=== PATIENT | male | born 1950 | race Caucasian/White ===

== ENCOUNTER 2017-05-05 14:27 | Inpatient (IN) | payer MEDICARE, MEDICAID ==
[~2017-05-05] VITALS: Ht 175.3 cm; Wt 89.5 kg
[~2017-05-05 14:27] MED LIST: LIDOCAINE HCL 1% PF 5 ML AMPULE OTHER ONE; PROPOFOL 200 MG/20 ML AMP IV ONE
[2017-05-05] MEDS ORDERED: DIPHTH/TETANUS/ACEL PERTUSSIS (BOOSTER) 0.5 ML VIAL/PFS IM ONE (14:31)
[2017-05-05] MEDS ORDERED: ceFAZolin 2 GM PREMIX 50 ML ONE (14:31)
[2017-05-05] MEDS ORDERED: MORPHINE SULFATE 8 MG/ML INJ ONE (14:36)
[2017-05-05 14:38] VITALS: O2SAT 98
[2017-05-05] MEDS ORDERED: GENTAMICIN 80 MG PREMIX 100 ML ONE (14:39)
--- NOTE | 2017-05-05 14:52 | RADRPT ---
EXAM DATE/TIME: 05/05/2017 14:30 [facility] COMPARISON: No previous studies available for comparison. INDICATIONS : Trauma alert. MEDICAL HISTORY : Unobtainable. SURGICAL HISTORY : Unobtainable. ENCOUNTER: Initial ACUITY: 1 day PAIN SCORE: Non-responsive. LOCATION: pelvis FINDINGS: Single AP view of the pelvis performed on a trauma backboard demonstrates a minimal displaced fractur es of the right superior and inferior pubic rami. Pubic symphysis and sacroiliac joints appear intact . There is mild osteoarthritis of the hip joints bilaterally. No soft tissue abnormality is seen. CONCLUSION: Minimally displaced fractures of the right superior and inferior pubic rami. Wayne Mcdaniels MD on May 05, 2017 at 14:50 Board Certified Radiologist. This report was verified electronically.
[2017-05-05] MEDS ORDERED: IOHEXOL 350 MG/ML 10 ML VIAL (for RAD DIAG) IVCONTRAST ONE (14:54)
--- NOTE | 2017-05-05 14:55 | RADRPT ---
EXAM DATE/TIME: 05/05/2017 14:30 [facility] COMPARISON: No previous studies available for comparison. INDICATIONS : Trauma alert. MEDICAL HISTORY : Unobtainable. SURGICAL HISTORY : Unobtainable. ENCOUNTER: Initial ACUITY: 1 day PAIN SCORE: Non-responsive. LOCATION: Bilateral chest FINDINGS: Frontal chest is performed with patient on a backboard. The lungs are grossly aerated without definit e hemothorax or pneumothorax. Cardiomediastinal contours are satisfactory for technique and projectio n. Visualized thoracic skeleton is intact. CONCLUSION: Satisfactory trauma chest appearance. Wayne Chowdhury MD on May 05, 2017 at 14:52 Board Certified Radiologist. This report was verified electronically.
--- NOTE | 2017-05-05 15:02 | RADRPT ---
EXAM DATE/TIME: 05/05/2017 14:37 [facility] COMPARISON: No previous studies available for comparison. INDICATIONS : Trauma alert, fall from tree. RADIATION DOSE: 56.35 CTDIvol (mGy) MEDICAL HISTORY : Non-responsive. SURGICAL HISTORY : Non-responsive. ENCOUNTER: Initial ACUITY: 1 day PAIN SCALE: Non-responsive LOCATION: cranial TECHNIQUE: Multiple contiguous axial images were obtained of the head. Using automated exposure control and adj ustment of the mA and/or kV according to patient size, radiation dose was kept as low as reasonably a chievable to obtain optimal diagnostic quality images. DICOM format image data is available electro nically for review and comparison. FINDINGS: CEREBRUM: The ventricles are normal for age. No evidence of midline shift, mass lesion, hemorrhage or acute in farction. No extra-axial fluid collections are seen. POSTERIOR FOSSA: The cerebellum and brainstem are intact. The 4th ventricle is midline. The cerebellopontine angle i s unremarkable. EXTRACRANIAL: The visualized portion of the orbits is intact. SKULL: The calvaria is intact. No evidence of skull fracture. CONCLUSION: No acute intracranial injury Wayne Chowdhury MD on May 05, 2017 at 14:55 Board Certified Radiologist. This report was verified electronically.
[2017-05-05 15:03] LABS: I-STAT POTASSIUM 4.3 MMOL/L (3.5-4.9)
--- NOTE | 2017-05-05 15:03 | RADRPT ---
EXAM DATE/TIME: 05/05/2017 14:30 [facility] COMPARISON: No previous studies available for comparison. INDICATIONS : Trauma alert. MEDICAL HISTORY : Unobtainable. SURGICAL HISTORY : Unobtainable. ENCOUNTER: Initial ACUITY: 1 day PAIN SCORE: Non-responsive. LOCATION: Right wrist FINDINGS: There is a moderately displaced fracture of the distal right radius with dorsal angulation and modera te dorsal displacement of the minor distal radial fracture fragment. The carpus is translocated dorsa lly with the distal radial articular surface. The distal ulna appears grossly intact. CONCLUSION: Moderately displaced Colles' configuration distal right radial fracture. Wayne Chowdhury MD on May 05, 2017 at 15:00 Board Certified Radiologist. This report was verified electronically.
[2017-05-05 15:05] LABS: AUTOMATED NEUTROPHIL # 7.1 TH/MM3 (1.8-7.7); BASOPHIL # 0.1 TH/MM3 (0-0.2); BASOPHIL % 0.6 % (0.0-2.0); EOSINOPHIL # 0.2 TH/MM3 (0-0.4); EOSINOPHIL % 1.7 % (0.0-4.0); HEMATOCRIT 45.6 % (39.0-51.0); HEMO FLAGS DIFF FINAL; LYMPH % 26.8 % (9.0-44.0); MEAN CELL VOLUME 93.8 FL (80.0-100.0); MEAN CORPUSCULAR HEMOGLOBIN 31.8 PG (27.0-34.0); MEAN CORPUSCULAR HGB CONC 33.9 % (32.0-36.0); MONO % 7.1 % (0.0-8.0); NEUT % 63.8 % (16.0-70.0); PLATELET COUNT 250 TH/MM3 (150-450); RED BLOOD COUNT 4.86 MIL/MM3 (4.50-5.90); RED CELL DISTRIBUTION WIDTH 12.6 % (11.6-17.2); WHITE BLOOD COUNT 11.1 TH/MM3 (4.0-11.0)
--- NOTE | 2017-05-05 15:08 | PD ---
HPI . Fall Chief Complaint: Trauma alert Time Seen by Provider: 14:42 Travel History International Travel<30 days: No Contact w/Intl Traveler<30days: No History of Present Illness HPI This patient presented as a trauma alert. He fell approximately 20 feet from an extension ladder. He was attempting to trim trees. He states that he just lost his balance and fell. He landed on his right side on concrete pavers. He denies loss of consciousness. He states that he feels like he had the wind knocked out of him. He comes in complaining with right wrist and right hip pain. He denies chest pain. He states that he is not currently short of breath. He has had no vomiting. He rates his pain in his wrist and hip at 6/ 10. Pain is exacerbated by movement. It is relieved by being still. He was hypotensive in the field. He was treated by EMS in the field with IV fluids and IV morphine. [facility] Past Medical History Coronary Artery Disease: Yes Diabetes: Yes Hypertension: Yes Myocardial Infarction: Yes Allergies-Medications (Allergen,Severity, Reaction): Coded Allergies: nitroglycerin (Verified Adverse Reaction, Unknown, Hypotension, 05/05/17) Reported Meds & Prescriptions Reported Meds & Active Scripts Active Reported Metformin (Metformin HCl) 1,000 Mg Tab 1,000 Mg PO BIDPC Metoprolol Tartrate 25 Mg Tab 25 Mg PO BID Aspirin 81 Mg Chew 81 Mg PO DAILY Plavix (Clopidogrel Bisulfate) 75 Mg Tab 75 Mg PO DAILY Review of Systems Except as stated in HPI: all other systems reviewed are Neg Cardiovascular: No: Chest Pain or Discomfort Respiratory: No: Shortness of Breath Gastrointestinal: No: Nausea, Vomiting, Diarrhea, Abdominal Pain Musculoskeletal: Positive: Arthralgias, Limited ROM Physical Exam Narrative GENERAL: Patient is awake and alert and has been loose and the entire time that he was in the trauma bay. SKIN: Pale and diaphoretic. HEAD: Normocephalic. Atraumatic. EYES: Pupils equal and round. No scleral icterus. No injection or drainage. ENT: No nasal bleeding or discharge. Mucous membranes pink and moist. NECK: Immobilized. CARDIOVASCULAR: Regular rate and rhythm. Heart sounds are normal. RESPIRATORY: No accessory muscle use. Clear to auscultation. Breath sounds equal bilaterally. GASTROINTESTINAL: Abdomen soft. Nontender. Bowel sounds present. Nondistended. MUSCULOSKELETAL: Obvious deformity of the right wrist with an associated puncture wound over the ulna. Tenderness in the right hip area. No shortening or malrotation. Pain with movement. Distally neurovascularly intact. He has a dislocation of the right fourth DIP joint. NEUROLOGICAL: Awake and alert. No obvious cranial nerve deficits. Motor grossly within normal limits. Normal speech. PSYCHIATRIC: Appropriate mood and affect; insight and judgment normal. Data Data Last Documented VS Vital Signs Date Time Temp Pulse Resp B/P (MAP) Pulse Ox O2 Delivery O2 Flow Rate FiO2 05/05/17 15:10 17 100 Nasal Cannula 2.00 Orders Orders Cefazolin 2 Gm Premix (Ancef 2 Gm Premix (05/05/17 14:31) Jtfj-Xym-Ezhvhx (Booster) Inj (Boostrix (05/05/17 14:31) Morphine Inj (Morphine Inj) (05/05/17 14:36) Gentamicin 80 Mg Premix (Gentamicin 80 M (05/05/17 14:39) I-Stat Profile (05/05/17 14:30) I-Stat Creatinine (05/05/17 14:30) Complete Blood Count With Diff (05/05/17 14:30) Prothrombin Time / Inr (Pt) (05/05/17 14:30) Act Partial Throm Time (Ptt) (05/05/17 14:30) Type And Screen (05/05/17 14:30) Red Blood Cells (Rbc) (05/05/17 14:30) Chest, Single Ap (05/05/17 14:30) Pelvis, Ap Only (Routine) (05/05/17 14:30) Ct Brain W/O Iv Contrast(Rout) (05/05/17 14:30) Ct Cerv Spine W/O Contrast (05/05/17 14:30) Ct Abd/Pel W Iv Contrast(Rout) (05/05/17 14:30) Ct Thorax/ Chest W Iv Contrast (05/05/17 14:30) Ct Thor Spine W/O Contrast (05/05/17 14:30) Ct Lumb Spine W/O Contrast (05/05/17 14:30) Iv Access Insert/Monitor (05/05/17 14:30) Ecg Monitoring (05/05/17 14:30) Oximetry (05/05/17 14:30) Oxygen Administration (05/05/17 14:30) Wrist, Limited (Ap&Lat) (05/05/17 ) Iohexol 350 Inj (Omnipaque 350 Inj) (05/05/17 14:54) Consult Orthopedic (05/05/17 ) Trauma Office Use Only (05/05/17 ) (Hub Use Only)Inp Phy Cons/Ref (05/05/17 ) Gentamicin Inj (Gentamicin Inj) (05/05/17 16:10) Labs Laboratory Tests Test 05/05/17 14:30 White Blood Count 11.1 TH/MM3 Red Blood Count 4.86 MIL/MM3 Hemoglobin 15.5 GM/DL Bedside Hemoglobin 15.6 G/DL Hematocrit 45.6 % Bedside Hematocrit 46.0 % Mean Corpuscular Volume 93.8 FL Mean Corpuscular Hemoglobin 31.8 PG Mean Corpuscular Hemoglobin Concent 33.9 % Red Cell Distribution Width 12.6 % Platelet Count 250 TH/MM3 Mean Platelet Volume 7.7 FL Neutrophils (%) (Auto) 63.8 % Lymphocytes (%) (Auto) 26.8 % Monocytes (%) (Auto) 7.1 % Eosinophils (%) (Auto) 1.7 % Basophils (%) (Auto) 0.6 % Neutrophils # (Auto) 7.1 TH/MM3 Lymphocytes # (Auto) 3.0 TH/MM3 Monocytes # (Auto) 0.8 TH/MM3 Eosinophils # (Auto) 0.2 TH/MM3 Basophils # (Auto) 0.1 TH/MM3 CBC Comment DIFF FINAL Differential Comment Prothrombin Time 11.3 SEC Prothromb Time International Ratio 1.0 RATIO Activated Partial Thromboplast Time 21.7 SEC Bedside Sodium 141 MMOL/L Bedside Potassium 4.3 MMOL/L Bedside Chloride 106 MMOL/L Bedside Blood Urea Nitrogen 23 MG/DL Bedside Creatinine 0.9 MG/DL Bedside Glucose 209 MG/DL [facility] Medical Screen Exam Complete: Yes Emergency Medical Condition: Yes Interpretation(s) EKG shows a sinus rhythm with no ST segment elevation or depression. Differential Diagnosis Differential diagnosis includes but is not limited to abrasion, contusion, laceration, closed head injury, blunt chest trauma, blunt abdominal trauma, long bone injury Narrative Course Patient presents as a trauma alert. He had a 20 foot fall onto his right side and has obvious trauma to the right wrist and probable trauma to the right hip. He was reportedly hypotensive in the field. Her pressure responded to a fluid bolus. EMS treated him with morphine 4 mg IV for pain. Appropriate monitors were placed. IV access was obtained. Chest and pelvic x- ray were done. A right wrist x-ray was also done. The patient was then removed from the backboard. A sugar tong splint was placed on the right forearm. He was then taken to CT for further evaluation. The patient was treated with Ancef and tetanus on arrival. He was given an additional 4 mg morphine for pain. Last Impressions Pelvis X-Ray [id number]/05/[id number] Signed Impressions: Service Date/Time: Friday, May 05, 2017 14:30 - CONCLUSION: Minimally displaced fractures of the right superior and inferior pubic rami. Wayne Mcdaniels MD Head CT 05/05/171429 Signed Impressions: Service Date/Time: Friday, May 05, 2017 14:37 - CONCLUSION: No acute intracranial injury Wayne Chowdhury MD Chest X-Ray 05/05/171429 Signed Impressions: Service Date/Time: Friday, May 05, 2017 14:30 - CONCLUSION: Satisfactory trauma chest appearance. Wayne Chowdhury MD Chest CT 05/05/171429 Signed Impressions: Service Date/Time: Friday, May 05, 2017 14:43 - CONCLUSION: No acute traumatic injury in the chest Wayne Chowdhury MD Cervical Spine CT 05/05/171429 Signed Impressions: Service Date/Time: Friday, May 05, 2017 14:42 - CONCLUSION: 1. No acute fracture or subluxation. 2. Multilevel degenerative spondylosis most prominently at C5-7. Tao Blanchard MD Abdomen/Pelvis CT 05/05/171429 Signed Impressions: Service Date/Time: Friday, May 05, 2017 14:43 - CONCLUSION: Right pelvic fractures. No evidence of acute intra-abdominal or pelvic soft tissue injury Wayne Chowdhury MD Wrist X-Ray 05/05/17 0000 Signed Impressions: Service Date/Time: Friday, May 05, 2017 14:30 - CONCLUSION: Moderately displaced Colles' configuration distal right radial fracture. Wayne Chowdhury MD CBC Diagram 05/05/17 14:30 Critical Care Narrative Aggregate critical care time was 30 minutes. Time to perform other separately billable procedures was not included in the critical care time. My time did not include minutes spent treating any other patients simultaneously or on activities that did not directly contribute to the patient's treatment. The services I provided to this patient were to treat and/or prevent clinically significant deterioration due to trauma patient with hypotension I provided critical care services requiring my management, as noted below: Chart data review, documentation time, medication orders and management, vital sign assessments/reviewing monitor data, ordering and reviewing lab tests, ordering and interpreting/reviewing x-rays and diagnostic studies, care of the patient and discussion of the patient with the admitting physicians Procedures Procedure Narrative Splint was applied by the tech with my assistance and direct supervision Good movement and capillary refill distal to the injury following splinting. Patient reports that the splint feels comfortable. The dislocated right fourth DIP joint was easily reduced manually. He tolerated this well without complication. Trauma Alert - Level One Trauma Alert Level One: Full trauma team activate Time Surgeon Summoned: 13:[address] Ty has been present in the trauma bay during the entire resuscitation. Dr. Hauser will try to take him to surgery this afternoon. Diagnosis Diagnosis: Primary Impression: Trauma Additional Impressions: Open fracture of right distal radius and ulna Qualified Codes: S52.501B - Unspecified fracture of the lower end of right radius, initial encounter for open fracture type I or II; S52.601B - Unspecified fracture of lower end of right ulna, initial encounter for open fracture type I or II Pelvic fracture Qualified Codes: S32.501A - Unspecified fracture of right pubis, initial encounter for closed fracture Admitting Physician Requests: Admit Condition: Stable Aleta Narvaez MD May 05, 2017 15:08
--- NOTE | 2017-05-05 15:08 | RADRPT ---
EXAM DATE/TIME: 05/05/2017 14:43 [facility] COMPARISON: No previous studies available for comparison. INDICATIONS : Trauma alert, fall from tree. IV CONTRAST: 82 cc Omnipaque 350 (iohexol) IV ; Cumulative dose for multiple exams. RADIATION DOSE: 9.01 CTDIvol (mGy) ; Combined studies - Thorax/Abdomen/Pelvis MEDICAL HISTORY : Non-responsive. SURGICAL HISTORY : Non-responsive. ENCOUNTER: Initial ACUITY: 1 day PAIN SCALE: Non-responsive LOCATION: chest TECHNIQUE: Volumetric scanning of the chest was performed. Using automated exposure control and adjustment of t he mA and/or kV according to patient size, radiation dose was kept as low as reasonably achievable to obtain optimal diagnostic quality images. DICOM format image data is available electronically for review and comparison. Follow-up recommendations for detected pulmonary nodules are based at a minimum on nodule size and pa tient risk factors according to Fleischner Society Guidelines. FINDINGS: LUNGS: There is no consolidation or pneumothorax. No concerning pulmonary nodule is visualized. PLEURA: There is no pleural thickening or pleural effusion. MEDIASTINUM: The heart and great vessels demonstrate no acute abnormality. There is no mediastinal or hilar lymph adenopathy. AXILLAE: Within normal limits. No lymphadenopathy. SKELETAL: Within normal limits for patient age. MISCELLANEOUS: The visualized upper abdominal organs demonstrate no acute abnormality. CONCLUSION: No acute traumatic injury in the chest Wayne Chowdhury MD on May 05, 2017 at 15:02 Board Certified Radiologist. This report was verified electronically.
[2017-05-05 15:09] LABS: APTT (PATIENT) 21.7 SEC (24.3-30.1); PROTHROMBIN TIME - PATIENT 11.3 SEC (9.8-11.6)
[2017-05-05 15:10] VITALS: RESP 17; O2SAT 100
--- NOTE | 2017-05-05 15:13 | RADRPT ---
EXAM DATE/TIME: 05/05/2017 14:43 [facility] COMPARISON: No previous studies available for comparison. INDICATIONS : Trauma alert, fall from tree. IV CONTRAST: 82 cc Omnipaque 350 (iohexol) IV ; Cumulative dose for multiple exams. ORAL CONTRAST: No oral contrast ingested. RADIATION DOSE: 9.01 CTDIvol (mGy) ; Combined studies - Thorax/Abdomen/Pelvis MEDICAL HISTORY : Non-responsive. SURGICAL HISTORY : Non-responsive. ENCOUNTER: Initial ACUITY: 1 day PAIN SCALE: Non-responsive LOCATION: abdomen TECHNIQUE: Volumetric scanning of the abdomen and pelvis was performed. Using automated exposure control and ad justment of the mA and/or kV according to patient size, radiation dose was kept as low as reasonably achievable to obtain optimal diagnostic quality images. DICOM format image data is available electro nically for review and comparison. FINDINGS: LOWER LUNGS: The visualized lower lungs are clear. LIVER: Homogeneous density without lesion. There is no dilation of the biliary tree. No calcified gallston es. SPLEEN: Normal size without lesion. PANCREAS: Within normal limits. KIDNEYS: Normal in size and shape. There is no mass, stone or hydronephrosis. ADRENAL GLANDS: Within normal limits. VASCULAR: There is no aortic aneurysm. BOWEL/MESENTERY: The stomach, small bowel, and colon demonstrate no acute abnormality. There is no free intraperitone al air or fluid. ABDOMINAL WALL: Within normal limits. RETROPERITONEUM: Mild extraperitoneal pelvic hematoma on the right associated with acetabular fractures. BLADDER: No wall thickening or mass. REPRODUCTIVE: Within normal limits. INGUINAL: There is no lymphadenopathy or hernia. MUSCULOSKELETAL: The right acetabulum is shattered with fracture lines extending to the superior and medial acetabulum . There is a mildly displaced vertically oriented fracture through the right sacral ala. There is a m ildly displaced fracture of the inferior pubic ramus. No evidence of left-sided hip or pelvic fractur e. CONCLUSION: Right pelvic fractures. No evidence of acute intra-abdominal or pelvic soft tissue injury Wayne Chowdhury MD on May 05, 2017 at 15:06 Board Certified Radiologist. This report was verified electronically.
[2017-05-05] MEDS ORDERED: METF1000 PO (15:18)
[2017-05-05] MEDS ORDERED: ASPI-516 PO (15:18)
[2017-05-05] MEDS ORDERED: PLAV75TA29 PO (15:18)
[2017-05-05] MEDS ORDERED: METO25TA3 PO (15:18)
--- NOTE | 2017-05-05 15:19 | RADRPT ---
EXAM DATE/TIME: 05/05/2017 14:42 [facility] COMPARISON: No previous studies available for comparison. INDICATIONS : Trauma alert, fall from tree. RADIATION DOSE: CTDIvol (mGy) MEDICAL HISTORY : Non-responsive. SURGICAL HISTORY : Non-responsive. ENCOUNTER: Initial ACUITY: 1 day PAIN SCALE: Non-responsive LOCATION: neck TECHNIQUE: Volumetric scanning of the cervical spine was performed. Multiplanar reconstructions in the sagittal, coronal and oblique axial planes were performed. Using automated exposure control and adjustment o f the mA and/or kV according to patient size, radiation dose was kept as low as reasonably achievable to obtain optimal diagnostic quality images. DICOM format image data is available electronically f or review and comparison. FINDINGS: Vertebral body heights are maintained. Osseous structures are intact without evidence for acute bony fracture. Dens is intact. There is increased anterior disc space at C2-3 and C4-5. Sagittal alignment is maintained. There is a normal C1-2 relationship. Facets are normally aligned. Multilevel degenera tive spondylosis most prominently at C5-7 with disc space narrowing and osteophyte formation. Bony ce ntral canal is patent. There is moderate bilateral bony neural foraminal stenosis at C6-7. Variable m ultilevel facet arthropathy. There is no significant prevertebral soft tissue hematoma. Scattered sub centimeter cervical nodes bilaterally. The thyroid appears unremarkable. Visualized lung apices are c lear without pneumothorax. CONCLUSION: 1. No acute fracture or subluxation. 2. Multilevel degenerative spondylosis most prominently at C5-7. Tao Blanchard MD on May 05, 2017 at 15:10 Board Certified Radiologist. This report was verified electronically.
[2017-05-05] MEDS ORDERED: GENTAMICIN SULFATE 80 MG/2 ML VIAL ONE (16:10)
[2017-05-05] MEDS ORDERED: ACETAMINOPHEN 1000 MG/100 ML 100 ML IV ONE (16:29)
[2017-05-05] MEDS ORDERED: SODIUM CHLORIDE 0.9% FLUSH 10 ML FLUSH IV FLUSH PRN (16:30)
[2017-05-05] MEDS ORDERED: MAGNESIUM HYDROXIDE SUSP 30 ML CUP PO PRN (16:30)
[2017-05-05] MEDS ORDERED: ENALAPRILAT 1.25 MG/ML VIAL IV PUSH PRN (16:30)
[2017-05-05] MEDS ORDERED: ONDANSETRON HCL 4 MG/2 ML VIAL IV PUSH PRN (16:30)
--- NOTE | 2017-05-05 16:31 | RADRPT ---
EXAM DATE/TIME: 05/05/2017 14:37 [facility] COMPARISON: CT ABDOMEN & PELVIS W CONTRAST, May 05, 2017, 14:43. INDICATIONS : Trauma alert, fall from tree. RADIATION DOSE: ; Reconstructed from previous dataset, no dose MEDICAL HISTORY : Non-responsive. SURGICAL HISTORY : Non-responsive. ENCOUNTER: Initial ACUITY: 1 day PAIN SCALE: Non-responsive LOCATION: Paraspinal TECHNIQUE: Volumetric scanning of the lumbar spine was performed. Multiplanar reconstructions in the sagittal, coronal and oblique axial planes were performed. Using automated exposure control and adjustment of the mA and/or kV according to patient size, radiation dose was kept as low as reasonably achievable t o obtain optimal diagnostic quality images. DICOM format image data is available electronically for review and comparison. FINDINGS: There is an oblique vertically oriented fracture through the right sacral ala. Fracture line extends to the anterior aspect of the sacroiliac joint. Fracture fragment is minimally displaced by up to 2 m m. There is adjacent edema and/or hemorrhage in the adjacent extraperitoneal space of the right pelvi s. Vertebral bodies demonstrate normal height without fracture. No anterolisthesis or retrolisthesis is present. Disc heights are reasonably well-preserved. No traumatic disc herniation is visualized. CONCLUSION: 1. There is an oblique vertically oriented fracture of the right sacral ala with extension into the a nterior aspect of the sacroiliac joint. Fracture fragment is minimally displaced and there is adjacen t edema and/or hemorrhage in the adjacent extraperitoneal space. 2. No acute lumbar spine abnormality is identified. Wayne Mcdaniels MD on May 05, 2017 at 16:24 Board Certified Radiologist. This report was verified electronically.
--- NOTE | 2017-05-05 16:34 | RADRPT ---
EXAM DATE/TIME: 05/05/2017 14:43 [facility] COMPARISON: No previous studies available for comparison. INDICATIONS : Trauma alert, fall from tree. RADIATION DOSE: ; Reconstructed from previous dataset, no dose MEDICAL HISTORY : Non-responsive. SURGICAL HISTORY : Non-responsive. ENCOUNTER: Initial ACUITY: 1 day PAIN SCALE: Non-responsive LOCATION: Paraspinal TECHNIQUE: Volumetric scanning of the thoracic spine was performed. Multiplanar reconstructions in the sagittal , coronal and oblique axial planes were performed. Using automated exposure control and adjustment o f the mA and/or kV according to patient size, radiation dose was kept as low as reasonably achievable to obtain optimal diagnostic quality images. DICOM format image data is available electronically f or review and comparison. FINDINGS: There is normal sagittal spinal alignment of the thoracic spine. No fracture or compression deformity is present. There is no anterolisthesis or retrolisthesis. Endplate osteophytes are present anterior ly at multiple levels extending primarily from T5-T12. No significant disc herniation is appreciated. CONCLUSION: There are degenerative changes of the thoracic spine but no acute thoracic spine abnormality is ident ified. Wayne Mcdaniels MD on May 05, 2017 at 16:29 Board Certified Radiologist. This report was verified electronically.
[2017-05-05] MEDS: SODIUM CHLOR 0.9% 1000 ML INJ 1,000 ML IV SCH (16:40)
[2017-05-05] MEDS: PANTOPRAZOLE SODIUM 40 MG VIAL IVP SCH (16:40)
[2017-05-05 16:41] VITALS: BP 117/65; PULSE 85; RESP 19; TEMP 97.8; O2SAT 97; O2SAT 98
--- NOTE | 2017-05-05 16:41 | PD.CONS ---
HPI Service Orthopedic Surgeons Consult Requested By Reason for Consult 1. Open right distal radius fracture 2. Right acetabular fracture Primary Care Physician Unknown Admission Diagnosis open right wrist fracture, right pelvic fracture, right fourth finge Diagnoses: Chief Complaint: Right wrist and hip pain after fall History of Present Illness Patient is a 66-year-old gentleman who presents after approximately 20 foot fall off a ladder today. Patient complains of right wrist and right hip pain. Patient does report he would did hit his head on a brick but did not lose consciousness. He denies any other extremity pain at this time. Review of Systems Constitutional: DENIES: Fever Endocrine: DENIES: Polyuria Eyes: DENIES: Blurred vision Ears, nose, mouth, throat: DENIES: Throat pain Respiratory: DENIES: Cough Cardiovascular: DENIES: Chest pain Gastrointestinal: DENIES: Abdominal pain Genitourinary: DENIES: Urinary frequency Musculoskeletal: COMPLAINS OF: Joint pain, Muscle aches, Stiffness, Joint Swelling Integumentary: DENIES: Rash Hematologic/lymphatic: DENIES: Bruising Immunologic/allergic: DENIES: Eczema Neurologic: DENIES: Abnormal gait Psychiatric: DENIES: Anxiety Past Family Social History Past Medical History Diabetes, hypertension, multiple MIs, coronary artery disease Past Surgical History Multiple stents and cardiac caths Reported Medications Plavix, baby aspirin, metformin Allergies: Coded Allergies: nitroglycerin (Verified Adverse Reaction, Unknown, Hypotension, 05/05/17) Active Ordered Medications Current Medications Medications (Trade) Dose Ordered Sig/Dominic Route Start Time Stop Time Status Last Admin Sodium Chloride 1,000 ml @ 100 mls/hr Q10H IV 05/05/17 17:00 (NS Flush) 2 ml UNSCH PRN IV FLUSH 05/05/17 16:30 (Vasotec Inj) 1.25 mg Q8H PRN IV PUSH 05/05/17 16:30 (Zofran Inj) 4 mg Q6H PRN IV PUSH 05/05/17 16:30 (Protonix Inj) 40 mg Q24H IVP 05/05/17 16:30 (Colace) 100 mg BID PO 05/05/17 21:00 (Milk Of Daphne Marquez) 30 ml Q6H PRN PO 05/05/17 16:30 Reported Meds & Active Scripts Active Reported Metformin (Metformin HCl) 1,000 Mg Tab 1,000 Mg PO BIDPC Metoprolol Tartrate 25 Mg Tab 25 Mg PO BID Aspirin 81 Mg Chew 81 Mg PO DAILY Plavix (Clopidogrel Bisulfate) 75 Mg Tab 75 Mg PO DAILY Family History Heart disease Social History Denies tobacco use Physical Exam Vital Signs Vital Signs Date Time Temp Pulse Resp B/P (MAP) Pulse Ox O2 Delivery O2 Flow Rate FiO2 05/05/17 15:10 17 100 Nasal Cannula 2.00 05/05/17 15:10 100 Nasal Cannula 2.00 05/05/17 14:38 98 4.00 Physical Exam Awake, alert, no acute distress Normocephalic, small abrasion to front of forehead Pupils equal Neck supple Moist mucous membranes Soft nontender abdomen Nonlabored respirations Regular rate Right upper extremity: Splint in place over wrist. Noticeable deformity at the DIP joint of fourth digit. Neurovascularly intact distally. Brisk cap refill. Right lower extremity: Positive logroll. No other deformity or tenderness. Neurovascularly intact distally sensation intact. Dorsalis pedis palpable. Left upper and lower extremities: No deformities, no tenderness to palpation. Full active range of motion and strength. Sensation intact. Radial and dorsalis pedis pulses are palpable. No rashes appreciated. Reported wound over right distal radius. Normal affect Laboratory Laboratory Tests Test 05/05/17 14:30 White Blood Count 11.1 Red Blood Count 4.86 Hemoglobin 15.5 Bedside Hemoglobin 15.6 Hematocrit 45.6 Bedside Hematocrit 46.0 Mean Corpuscular Volume 93.8 Mean Corpuscular Hemoglobin 31.8 Mean Corpuscular Hemoglobin Concent 33.9 Red Cell Distribution Width 12.6 Platelet Count 250 Mean Platelet Volume 7.7 Neutrophils (%) (Auto) 63.8 Lymphocytes (%) (Auto) 26.8 Monocytes (%) (Auto) 7.1 Eosinophils (%) (Auto) 1.7 Basophils (%) (Auto) 0.6 Neutrophils # (Auto) 7.1 Lymphocytes # (Auto) 3.0 Monocytes # (Auto) 0.8 Eosinophils # (Auto) 0.2 Basophils # (Auto) 0.1 CBC Comment DIFF FINAL Differential Comment Prothrombin Time 11.3 Prothromb Time International Ratio 1.0 Activated Partial Thromboplast Time 21.7 Bedside Sodium 141 Bedside Potassium 4.3 Bedside Chloride 106 Bedside Blood Urea Nitrogen 23 Bedside Creatinine 0.9 Bedside Glucose 209 Result Diagram: 05/05/17 1430 Imaging Right wrist radiographs demonstrate a displaced distal radius, appears extra- articular fracture. Abdomen pelvis CT and x-rays demonstrate minimally displaced right acetabular fracture. Assessment & Plan Assessment and Plan 66-year-old gentleman with extensive cardiac history with suspected open right distal radius fracture, right acetabular fracture, and right fourth DIP joint dislocation 1. After extensive discussion with the patient and his friend at bedside, patient is requesting that the hand surgeon control panel operator take over care of his right distal radius fracture. I did discuss with the patient, his friend, and the ED physician regarding this and they will call the hand surgeon control panel operator who has been reported to be aware of this. 2. In regards to his right acetabular fracture, I have discussed with my partner Dr. Rome Luong and at this time we will treat this nonoperatively. Patient was instructed to remain nonweightbearing to his right lower extremity. He is allowed toe touch when ambulating. I would like to see the patient back in my clinic in 1 week for repeat x-rays to ensure this fracture is not moving. I discussed with the patient that should this fracture displaces further, he may require open reduction internal fixation of his acetabulum which would be done by my partner Dr. Luong. However, our hope is that this will heal in a few months should he develop right hip osteoarthritis, he could then undergo a total hip arthroplasty is an elective procedure which would require much less blood loss be much safer from a cardiac standpoint. 3. Right fourth DIP joint dislocation has been reduced by the ED and will be managed by hand surgery. Mis Mcdonough MD May 05, 2017 16:41
[2017-05-05] MEDS ORDERED: BUPIVACAINE HCL PF 0.5% 30 ML VIAL ONE (16:42)
[2017-05-05] MEDS ORDERED: NEOMYCIN/POLYMYXIN 1 ML G.U. IRRIGANT ONE (16:44)
[2017-05-05 18:45] VITALS: BP 126/77; TEMP 97.8
--- NOTE | 2017-05-05 18:56 | RADRPT ---
EXAM DATE/TIME: 05/05/2017 18:28 [facility] COMPARISON: WRIST RIGHT LIMITED(AP & LAT), May 05, 2017, 14:30. INDICATIONS : Trauma, right wrist fracture. RADIATION DOSE: 14.50 CTDIvol (mGy) MEDICAL HISTORY : None SURGICAL HISTORY : None. ENCOUNTER: Initial ACUITY: 1 day PAIN SCALE: 10/10 LOCATION: Right wrist TECHNIQUE: Volumetric scanning of the wrist was performed. Using automated exposure control and adjustment of t he mA and/or kV according to patient size, radiation dose was kept as low as reasonably achievable to obtain optimal diagnostic quality images. DICOM format image data is available electronically for review and comparison. FINDINGS: There is a comminuted distal radial metaphyseal fracture. There is a dominant fracture fragment with multiple smaller fracture fragments. The fracture lines extend to the articular surface of the radioc arpal joint as well as the radial ulnar joint. There is posterior displacement of the dominant fractu re fragment such that this lies towards the dorsum of the more proximal fracture fragment. The carpus maintains its articulation with this dominant fracture fragment. The carpus is otherwise maintained. No ulnar styloid fracture appreciated. Soft tissue swelling noted. Atherosclerotic calcifications ob served within the ulnar artery. CONCLUSION: 1. Acute comminuted distal radial fracture as detailed above. Cipriano Gutiérrez Jr., MD on May 05, 2017 at 18:52 Board Certified Radiologist. This report was verified electronically.
[2017-05-05 20:35] VITALS: BP 144/74; PULSE 91; RESP 17; TEMP 98.5; O2SAT 94
[2017-05-05] MEDS ORDERED: METO50TA PO (21:13)
[2017-05-05] MEDS ORDERED: ROSU1TAB8 PO (21:14)
[2017-05-05] MEDS: METOPROLOL TARTRATE 50 MG TAB PO SCH (22:13)
[2017-05-05] MEDS: ACETAMINOPHEN/HYDROcodone 325 MG/5 MG TAB PO PRN (22:13)
[2017-05-05] MEDS: DOCUSATE SODIUM 100 MG CAP PO SCH (22:13)
[2017-05-06 00:25] VITALS: BP 120/72; PULSE 80; RESP 17; TEMP 97.8; O2SAT 96
[2017-05-06] MEDS: ACETAMINOPHEN/HYDROcodone 325 MG/5 MG TAB PO PRN ×5 (02:20→21:58)
[2017-05-06] MEDS: SODIUM CHLOR 0.9% 1000 ML INJ 1,000 ML IV SCH ×3 (02:41→23:00)
[2017-05-06 05:30] VITALS: BP 142/74; PULSE 74; RESP 17; TEMP 97.6; O2SAT 95
[2017-05-06] MEDS ORDERED: DEXTROSE 50% IN WATER 50 ML VIAL(D50) IV PUSH PRN (06:15)
[2017-05-06] MEDS ORDERED: GLUCAGON 1 MG/ML VIAL OTHER PRN (06:15)
[2017-05-06] MEDS: METOPROLOL TARTRATE 50 MG TAB PO SCH ×2 (07:41→21:57)
[2017-05-06] MEDS: DOCUSATE SODIUM 100 MG CAP PO SCH (07:52)
[2017-05-06] MEDS: INSULIN NovoLIN REGULAR SUPPLEMENTAL SCALE SQ SCH ×4 (07:52→21:00)
[2017-05-06 07:53] VITALS: BP 143/73; PULSE 78; RESP 18; TEMP 97; O2SAT 96
--- NOTE | 2017-05-06 08:09 | MH ---
cc: CHUYITA KAY AKA: [id number] DATE OF ADMISSION: 05/05/2017 HISTORY OF PRESENT ILLNESS This is a patient who was on a ladder approximately 20 feet up and while trimming a tree lost his balance and fell. He fell onto his right side. He was brought in as a Trauma Alert. By reports the patient initially had a systolic blood pressure in the 70s. The patient came in on a backboard in a C-collar immobilized, complaining of pain to his right hip and right wrist. He denies loss of consciousness. No chest pain. No shortness of breath. He does complain of numbness of his right hand. No abdominal pain. No headaches. No visual changes. PAST MEDICAL HISTORY 1. Type 2 diabetes. 2. Hypertension. 3. Cardiac disease. ALLERGIES NITROGLYCERIN. MEDICATIONS Home medications include: 1. Plavix. 2. Metoprolol. 3. Metformin. SOCIAL HISTORY No tobacco use. FAMILY HISTORY Noncontributory. REVIEW OF SYSTEMS Significant for above. All other 10-point review is negative. PHYSICAL EXAMINATION GENERAL: He is lying in a stretcher in no acute distress. HEENT: Pupils are equal and reactive. NECK: Trachea is midline. LUNGS: Respirations are clear. HEART: Regular. ABDOMEN: Soft, nontender. EXTREMITIES: The patient has deformity to his right wrist with a puncture in the volar aspect. NEUROLOGIC: Nonfocal. LABORATORY Hemoglobin 15, hematocrit 46. Electrolytes within normal limits. IMAGING CT of the head: Negative. CT of the C-spine: Negative. CT of the chest: Negative. CT of the abdomen and pelvis: Right pelvic fracture. ASSESSMENT AND PLAN This is a patient status post fall with an open wrist fracture and a right pelvic fracture. Orthopedics has been consulted and will be taking the patient to the operating room. The patient has received antibiotics. Will provide pain management. Monitor his neurological status. MD TEGAN Vega/ORALIA /7:31 AM /8:01 AM
--- NOTE | 2017-05-06 09:33 | MB ---
cc: MAGDA CHAUDHARY MD DATE OF CONSULTATION: 05/06/2017 HISTORY OF PRESENT ILLNESS This is a 66-year-old gentleman who was admitted to the hospital after sustaining a fall from a ladder. He has a fracture of his wrist as well as his pelvis. He is tentatively scheduled for open reduction and internal fixation of his wrist. We have been asked to see him for cardiac clearance. He has a history of coronary artery disease with stenting in the past. He has noted over the past several months episodes of very brief chest discomfort which last for only several seconds at a time. No exertional discomfort has been present. He denies any associated dyspnea, diaphoresis or nausea. He has been faithful with his medicine. He last underwent PTCA and stenting approximately one year ago. He has otherwise felt well. PAST MEDICAL HISTORY His past medical history is otherwise significant for hypertension and type 2 diabetes as well as hyperlipidemia. MEDICATIONS His current medicines include: 1. Metformin 1000 mg twice a day. 2. Metoprolol 25 mg twice a day. 3. Aspirin 81 mg daily. 4. Plavix 75 mg daily. ALLERGIES ALLERGIES ARE NONE, ALTHOUGH HE HAS HAD HYPOTENSION AFTER TAKING SUBLINGUAL NITROGLYCERIN. PHYSICAL EXAMINATION VITAL SIGNS: Blood pressure is 140/70. He is afebrile. Pulse is 70 and regular. NECK: There is no neck vein distension. Carotids are normal. LUNGS: Clear. CARDIOVASCULAR: Regular rate and rhythm. There is no significant murmur present. No gallop is noted. ABDOMEN: Soft. There is no tenderness. ELECTROCARDIOGRAM Electrocardiogram is normal. LABORATORY His laboratory examination is otherwise unremarkable. ASSESSMENT AND RECOMMENDATIONS The patient has very atypical chest discomfort. Just to be on the safe side I have ordered a Lexiscan to rule out any occult recurrence of his coronary artery disease. He otherwise would appear to be a good candidate for his ORIF, and at this point time it is safe to go ahead and hold his Plavix in anticipation of his surgery. MD ELODIA Pedro/ORALIA /9:22 AM /9:33 AM
--- NOTE | 2017-05-06 09:58 | EKG ---
Date Performed: 05/05/2017 Time Performed: 15:15:53 PTAGE: 89 years EKG: Sinus rhythm LEFT ANTERIOR FASCICULAR BLOCK SEPTAL MYOCARDIAL INFARCTION ABNORMAL ECG INTERPRETATION BASED ON A D EFAULT AGE OF 41 YEARS NO PREVIOUS TRACING DOCTOR: Baljeet Pichardo Interpretating Date/Time 05/06/2017 09:57:19
--- NOTE | 2017-05-06 11:23 | HHI.PR ---
Subjective Subjective Notes Nuclear stress test today to determine clearance for Ortho sx Complains of right arm pain Objective Vitals/I&O Vital Signs Date Time Temp Pulse Resp B/P (MAP) Pulse Ox O2 Delivery O2 Flow Rate FiO2 05/06/17 07:53 97.0 78 18 143/73 (96) 96 05/05/17 16:41 Room Air 05/05/17 15:10 2.00 Labs Laboratory Tests Test 05/05/17 14:30 White Blood Count 11.1 Red Blood Count 4.86 Hemoglobin 15.5 Bedside Hemoglobin 15.6 Hematocrit 45.6 Bedside Hematocrit 46.0 Mean Corpuscular Volume 93.8 Mean Corpuscular Hemoglobin 31.8 Mean Corpuscular Hemoglobin Concent 33.9 Red Cell Distribution Width 12.6 Platelet Count 250 Mean Platelet Volume 7.7 Neutrophils (%) (Auto) 63.8 Lymphocytes (%) (Auto) 26.8 Monocytes (%) (Auto) 7.1 Eosinophils (%) (Auto) 1.7 Basophils (%) (Auto) 0.6 Neutrophils # (Auto) 7.1 Lymphocytes # (Auto) 3.0 Monocytes # (Auto) 0.8 Eosinophils # (Auto) 0.2 Basophils # (Auto) 0.1 CBC Comment DIFF FINAL Differential Comment Prothrombin Time 11.3 Prothromb Time International Ratio 1.0 Activated Partial Thromboplast Time 21.7 Bedside Sodium 141 Bedside Potassium 4.3 Bedside Chloride 106 Bedside Blood Urea Nitrogen 23 Bedside Creatinine 0.9 Bedside Glucose 209 Narrative Exam GENERAL: 66 year old well nourished male lying in bed. SKIN: Warm and dry. HEAD: Normocephalic. EYES: PERRL ENT: No nasal bleeding or discharge. Mucous membranes pink and moist. NECK: Trachea midline. No JVD. CARDIOVASCULAR: Regular rate and rhythm. RESPIRATORY: No accessory muscle use. Clear and diminished to auscultation. Breath sounds equal bilaterally. GASTROINTESTINAL: Abdomen soft, non-tender, nondistended. + BS MUSCULOSKELETAL: Extremities without cyanosis, or edema. RIGHT arm wrapped in cherelle wrap. MAEW, + perfused NEUROLOGICAL: Awake and alert. Normal speech. A/P Assessment and Plan [place]: Fall from approximately 20 feet from an extension ladder landing on his right side on concrete pavers. No LOC. On Plavix at home. INJURIES: RIGHT superior and inferior pubic rami fxs (non-op) Open RIGHT radial Colles' fx RIGHT fourth finger dislocation Concussion PMHx: DM, HTN, [place], CAD 05/06: RIGHT fourth finger DIP joint reduced Diet: NPO, ADA diet after stress test today Pulm: IS Pain: [place], Morphine IV Activity: OOB. PT and OT ordered. (TTWB RLE) GI: IV Protonix Bowel: Colace. PRN MOM. LBM 0 DVT: SCDs RIGHT superior and inferior pubic rami fxs Orthopedics consulted Non-operative management TTWB RLE OOB-PT ordered Open RIGHT radial Colles' fx, RIGHT fourth finger dislocation Hand surgery consulted 05/06: RIGHT fourth finger DIP joint reduced ABX per hand sx Awaiting plan Cardiology consulted for cardiac clearance for surgical intervention Nuclear stress test today Concussion Supportive care Avoid second head injury Post-concussive education DM Hold home Metformin for now Low dose SSI AC, HS CM consulted to assist with discharge planning. Raf evaluating for possible placement. Josy Rosas May 06, 2017 11:23
[2017-05-06 12:00] VITALS: BP 142/81; PULSE 78; RESP 18; TEMP 97.8; O2SAT 95
[2017-05-06] MEDS ORDERED: REGADENOSON INJ 0.4 MG/5 ML SYR ONE (13:54)
--- NOTE | 2017-05-06 15:38 | RADRPT ---
EXAM DATE/TIME: 05/06/2017 13:14 [facility] COMPARISON: No previous studies available for comparison. INDICATIONS : Chest pain after fall from ladder. Coronary atherosclerosis. DOSE: 27.3 mCi Tc99m Myoview at stress. 8.5 mCi Tc99m Myoview at rest. 0.4 mg Lexiscan STRESS SYMPTOMS: [place]. EJECTION FRACTION: 41% MEDICAL HISTORY : Diabetes mellitus type 2. Hypertension. Cardiovascular disease SURGICAL HISTORY : Angioplasty. ENCOUNTER: Initial ACUITY: 1 day PAIN SCALE: 2/10 LOCATION: Substernal chest TECHNIQUE: The patient underwent pharmacologic stress with infusion of prescribed dose. Continuous ECG tracing was monitored during stress. Gated SPECT imaging was performed after stress and conventional SPECT i maging was performed at rest. The examination was performed on a SPECT/CT scanner, both attenuation and non-corrected datasets were reviewed. FINDINGS: There is enlarged fixed defect involving the anterior anterior septal region and septum. This extend s from apex to base. There is no redistribution to suggest stress-induced ischemia however got does obscure the inferior w all. The ejection fraction is 41% with mild dilatation of ventricular cavity. Hypokinesis and septal lauren on CONCLUSION: Negative for stress-induced ischemia. Large septal wall infarct. RISK CATEGORY: Intermediate (1-3% Annual Mortality Rate) Ted De Paz MD FACR on May 06, 2017 at 15:34 Board Certified Radiologist. This report was verified electronically.
--- NOTE | 2017-05-06 15:56 | OTSOAPIP ---
TIME SESSION COMPLETED: PM TREATMENT TIME: 0 MINS. CHART REVIEWED. ATTEMPTED TO SEE FOR OT EVALUATION, HOWEVER OFF THE FLOOR FOR NUCLEAR MED. WILL FOLLOW NEXT DAY. Therapist: DULCE SAGASTUME OT/Norman Signature on file
[2017-05-06] MEDS: PANTOPRAZOLE SODIUM 40 MG VIAL IVP SCH (16:10)
[2017-05-06 16:15] VITALS: BP 152/86; PULSE 81; RESP 18; TEMP 97.3; O2SAT 95
[2017-05-06] MEDS: POLYETHYLENE GLYCOL 17 GM PKG PO SCH (17:03)
[2017-05-06 17:57] LABS: BASOPHIL % 0.4 % (0.0-2.0); EOSINOPHIL % 0.3 % (0.0-4.0); HEMO FLAGS DIFF FINAL; LYMPH % 12.6 % (9.0-44.0); LYMPHOCYTE # 1.6 TH/MM3 (1.0-4.8); MEAN CELL VOLUME 92.9 FL (80.0-100.0); MEAN CORPUSCULAR HEMOGLOBIN 32.4 PG (27.0-34.0); MEAN CORPUSCULAR HGB CONC 34.9 % (32.0-36.0); MONO % 7.6 % (0.0-8.0); NEUT % 79.1 % (16.0-70.0); PLATELET COUNT 183 TH/MM3 (150-450); RED BLOOD COUNT 4.09 MIL/MM3 (4.50-5.90); RED CELL DISTRIBUTION WIDTH 12.6 % (11.6-17.2); WHITE BLOOD COUNT 12.7 TH/MM3 (4.0-11.0)
--- NOTE | 2017-05-06 18:11 | MB ---
cc: KIMANI BAKER MD DATE OF CONSULTATION: 05/06/2017 REASON FOR CONSULTATION: Right wrist fracture. 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 The patient states he lost his balance and fell. He landed on the right side on the concrete batch plant operator, sustaining injury to the right wrist region. The patient had CAT scans and x-rays of the wrist. He also had x-rays and CT scan of the abdomen and pelvis. He was diagnosed with pelvic fracture. He also had an open right distal radius fracture and hand surgery was consulted. The patient is alert and oriented x3. Examination of right upper extremity reveals a sugar-tong splint in place. The patient has swelling of the fingers. He has intact sensation distally. He has intact capillary refill. Range of motion of the fingers are limited and painful. Wrist range of motion is limited and painful. Based on the ED notes the patient has a puncture wound along the ulnar aspect of the wrist. He has intact capillary refill. The patient also had a dislocation of the distal interphalangeal joint of the ring finger which was reduced by the ED. X-rays of the right wrist was reviewed shows comminuted fracture involving the distal radius with questionable intra-articular involvement and dorsal subluxation of the carpus. CT scan of the right upper extremity was reviewed and shows comminuted fracture involving the distal radius. Dorsal chair fracture with dorsal displacement of the articular surface and the carpus. There is also comminution involving the dorsal cortex with intra-articular extension. ASSESSMENT The patient is a 66-year-old male with dorsal chair fracture, distal radius right wrist with comminution. PLAN: The plan will be to take the patient for open reduction internal fixation of the distal radius right wrist on May 07, 2017. We will keep the patient n.p.o. from midnight tonight. Will keep the hand elevated on an IV pole. The patient has been advised regarding finger range of motion exercises. He has been explained the risks and benefits of the procedure. The patient is consented for open reduction internal fixation distal radius right wrist. Kimani Baker MD SE/UNIQUE /5:47 PM /5:58 PM
[2017-05-06 18:12] LABS: ANION GAP 10 MEQ/L (5-15); AST (GOT) 19 U/L (15-37); BICARBONATE 22.5 MEQ/L (21.0-32.0); BLOOD UREA NITROGEN 14 MG/DL (7-18); CHLORIDE 104 MEQ/L (98-107); GLOMERULAR FILTRATION RATE 106 ML/MIN (>89); SODIUM (NA) 136 MEQ/L (136-145)
[2017-05-06 18:16] LABS: ALKALINE PHOSPHATASE 54 U/L (45-117); ALT (GPT) 31 U/L (12-78); TOTAL BILIRUBIN ADULT 0.5 MG/DL (0.2-1.0)
[2017-05-06 19:16] VITALS: BP 129/75; PULSE 84; RESP 18; TEMP 97.9; O2SAT 95
[2017-05-06] MEDS: DOCUSATE SODIUM 50 MG/SENNA 8.6 MG TAB PO SCH (21:00)
[2017-05-06] MEDS ORDERED: NON-FORMULARY DRUG (Rosuvastatin 20 MG) PO SCH (21:00)
[2017-05-06] MEDS: ATORVASTATIN 40 MG TAB PO SCH (21:56)
[2017-05-06] MEDS: MORPHINE SULFATE 2 MG/ML INJ IV PUSH PRN (23:00)
[2017-05-07 00:35] VITALS: BP 136/75; PULSE 87; RESP 19; TEMP 96.7; O2SAT 95
[2017-05-07] MEDS ORDERED: SODIUM CHLORID 0.9% 500 ML IV PRN (03:30)
[2017-05-07] MEDS ORDERED: POVIDONE IODINE 5% (ANTISEPSIS KIT) 4 APPLICATIONS EACH NARE PRN (03:30)
[2017-05-07] MEDS ORDERED: CHLORHEXIDINE GLUCONATE 2 % 1 PACK (2 CLOTHS) TOPICAL PRN (03:30)
[2017-05-07] MEDS ORDERED: LACTATED RINGER'S 1000 ML IV PRN (03:30)
[2017-05-07] MEDS: ACETAMINOPHEN/HYDROcodone 325 MG/5 MG TAB PO PRN (04:00)
[2017-05-07 04:19] LABS: AUTOMATED NEUTROPHIL # 7.3 TH/MM3 (1.8-7.7); BASOPHIL # 0.1 TH/MM3 (0-0.2); EOSINOPHIL # 0.3 TH/MM3 (0-0.4); EOSINOPHIL % 2.6 % (0.0-4.0); HEMATOCRIT 37.4 % (39.0-51.0); HEMO FLAGS DIFF FINAL; LYMPH % 20.7 % (9.0-44.0); LYMPHOCYTE # 2.3 TH/MM3 (1.0-4.8); MEAN CELL VOLUME 92.6 FL (80.0-100.0); MEAN CORPUSCULAR HEMOGLOBIN 32.1 PG (27.0-34.0); MEAN CORPUSCULAR HGB CONC 34.6 % (32.0-36.0); MONO % 11.4 % (0.0-8.0); NEUT % 64.3 % (16.0-70.0); PLATELET COUNT 180 TH/MM3 (150-450); RED BLOOD COUNT 4.04 MIL/MM3 (4.50-5.90); RED CELL DISTRIBUTION WIDTH 12.5 % (11.6-17.2); WHITE BLOOD COUNT 11.3 TH/MM3 (4.0-11.0)
[2017-05-07 04:35] VITALS: BP 148/80; PULSE 73; RESP 20; TEMP 97.5; O2SAT 97
[2017-05-07 04:54] LABS: POTASSIUM 3.9 MEQ/L (3.5-5.1)
[2017-05-07 08:00] VITALS: BP 133/70; PULSE 80; RESP 18; TEMP 98.5; O2SAT 95
[2017-05-07] MEDS: INSULIN NovoLIN REGULAR SUPPLEMENTAL SCALE SQ SCH ×4 (08:00→21:17)
--- NOTE | 2017-05-07 08:21 | PD.CARD.PN ---
Subjective Subjective Remarks Lexiscan normal. OK to proceed with surgery Objective Medications Current Medications Medications (Trade) Dose Ordered Sig/Dominic Route Start Time Stop Time Status Last Admin Sodium Chloride 1,000 ml @ 100 mls/hr Q10H IV 05/05/17 17:00 05/05/17 16:40 (NS Flush) 2 ml UNSCH PRN IV FLUSH 05/05/17 16:30 05/05/17 16:40 (Vasotec Inj) 1.25 mg Q8H PRN IV PUSH 05/05/17 16:30 (Zofran Inj) 4 mg Q6H PRN IV PUSH 05/05/17 16:30 (Protonix Inj) 40 mg Q24H IVP 05/05/17 16:30 05/06/17 16:10 (Milk Of Magnesia Liq) 30 ml Q6H PRN PO 05/05/17 16:30 (Hendrum 5-325 Mg) 1 tab Q4H PRN PO 05/05/17 21:45 05/06/17 16:10 (Hendrum 5-325 Mg) 2 tab Q4H PRN PO 05/05/17 21:45 05/07/17 04:00 (Morphine Inj) 2 mg Q3H PRN IV PUSH 05/05/17 21:45 05/06/17 23:00 (D50w (Vial) Inj) 50 ml UNSCH PRN IV PUSH 05/06/17 06:15 (Glucagon Inj) 1 mg UNSCH PRN OTHER 05/06/17 06:15 (NovoLIN R SUPPLEMENTAL SCALE) 1 ACHS SLIDING SCALE SQ 05/06/17 08:00 05/06/17 21:00 (Lopressor) 75 mg BID PO 05/06/17 21:00 05/06/17 21:57 (Lipitor) 40 mg HS PO 05/06/17 21:00 05/06/17 21:56 (Merary-Colace) 1 tab BID PO 05/06/17 21:00 05/06/17 21:00 (Miralax) 17 gm DAILY PO 05/06/17 17:00 05/06/17 17:03 Lactated Ringer's 1,000 ml @ 30 mls/hr Q24H PRN IV 05/07/17 03:30 05/10/17 03:29 05/07/17 06:32 Sodium Chloride 500 ml @ 30 mls/hr [id number] PRN IV 05/07/17 03:30 05/10/17 03:29 (Betadine 5% Antisepsis Kit) 1 applic WRAPPER CASHIER PRN EACH NARE 05/07/17 03:30 05/10/17 03:29 (Chlorhexidine 2% Cloth) 3 pack WRAPPER CASHIER PRN TOPICAL 05/07/17 03:30 05/10/17 03:29 (NovoLIN R INJ) See Protocol Table ... WRAPPER CASHIER PRN SQ 05/07/17 03:30 05/10/17 03:29 Vital Signs / I&O Vital Signs Date Time Temp Pulse Resp B/P (MAP) Pulse Ox O2 Delivery O2 Flow Rate FiO2 05/07/17 08:00 98.5 80 18 133/70 (91) 95 05/07/17 07:26 Room Air 05/07/17 04:35 97.5 73 20 148/80 (102) 97 05/07/17 00:35 96.7 87 19 136/75 (95) 95 05/06/17 19:16 97.9 84 18 129/75 (93) 95 05/06/17 16:15 97.3 81 18 152/86 (108) 95 05/06/17 12:00 97.8 78 18 142/81 (101) 95 I/O 05/06/17 05/06/17 05/06/17 05/07/17 05/07/17 05/07/17 07:00 15:00 23:00 07:00 15:00 23:00 Intake Total 0 ml 0 ml 480 ml 240 ml Output Total 700 ml 500 ml 1050 ml Balance -700 ml 0 ml -20 ml -810 ml Intake Oral 0 ml 0 ml 480 ml 240 ml Output Urine Total 700 ml 500 ml 1050 ml # Voids 3 # Bowel Movements 0 0 0 0 Laboratory Laboratory Tests Test 05/06/17 17:32 05/07/17 04:12 White Blood Count 12.7 TH/MM3 11.3 TH/MM3 Red Blood Count 4.09 MIL/MM3 4.04 MIL/MM3 Hemoglobin 13.3 GM/DL 12.9 GM/DL Hematocrit 38.0 % 37.4 % Mean Corpuscular Volume 92.9 FL 92.6 FL Mean Corpuscular Hemoglobin 32.4 PG 32.1 PG Mean Corpuscular Hemoglobin Concent 34.9 % 34.6 % Red Cell Distribution Width 12.6 % 12.5 % Platelet Count 183 TH/MM3 180 TH/MM3 Mean Platelet Volume 7.6 FL 7.4 FL Neutrophils (%) (Auto) 79.1 % 64.3 % Lymphocytes (%) (Auto) 12.6 % 20.7 % Monocytes (%) (Auto) 7.6 % 11.4 % Eosinophils (%) (Auto) 0.3 % 2.6 % Basophils (%) (Auto) 0.4 % 1.0 % Neutrophils # (Auto) 10.0 TH/MM3 7.3 TH/MM3 Lymphocytes # (Auto) 1.6 TH/MM3 2.3 TH/MM3 Monocytes # (Auto) 1.0 TH/MM3 1.3 TH/MM3 Eosinophils # (Auto) 0.0 TH/MM3 0.3 TH/MM3 Basophils # (Auto) 0.0 TH/MM3 0.1 TH/MM3 CBC Comment DIFF FINAL DIFF FINAL Differential Comment Blood Urea Nitrogen 14 MG/DL 12 MG/DL Creatinine 0.74 MG/DL 0.60 MG/DL Random Glucose 213 MG/DL 208 MG/DL Total Protein 6.4 GM/DL Albumin 3.3 GM/DL Calcium Level 8.5 MG/DL 8.4 MG/DL Alkaline Phosphatase 54 U/L Aspartate Amino Transf (AST/SGOT) 19 U/L Alanine Aminotransferase (ALT/SGPT) 31 U/L Total Bilirubin 0.5 MG/DL Sodium Level 136 MEQ/L 136 MEQ/L Potassium Level 4.0 MEQ/L 3.9 MEQ/L Chloride Level 104 MEQ/L 103 MEQ/L Carbon Dioxide Level 22.5 MEQ/L 23.0 MEQ/L Anion Gap 10 MEQ/L 10 MEQ/L Estimat Glomerular Filtration Rate 106 ML/MIN 135 ML/MIN Bull Messina MD May 07, 2017 08:21
[2017-05-07] MEDS: SODIUM CHLOR 0.9% 1000 ML INJ 1,000 ML IV SCH ×2 (09:00→19:00)
[2017-05-07] MEDS: POLYETHYLENE GLYCOL 17 GM PKG PO SCH (09:00)
[2017-05-07] MEDS: MORPHINE SULFATE 2 MG/ML INJ IV PUSH PRN (09:07)
[2017-05-07] MEDS: DOCUSATE SODIUM 50 MG/SENNA 8.6 MG TAB PO SCH ×2 (09:08→21:15)
[2017-05-07] MEDS: METOPROLOL TARTRATE 50 MG TAB PO SCH ×2 (09:08→21:15)
--- NOTE | 2017-05-07 10:58 | HHI.PR ---
Subjective Subjective Notes OR today for ORIF RIGHT radius Pain controlled Objective Vitals/I&O Vital Signs Date Time Temp Pulse Resp B/P (MAP) Pulse Ox O2 Delivery O2 Flow Rate FiO2 05/07/17 08:00 98.5 80 18 133/70 (91) 95 05/07/17 07:26 Room Air 05/05/17 15:10 2.00 Labs Laboratory Tests Test 05/06/17 17:32 05/07/17 04:12 White Blood Count 12.7 11.3 Red Blood Count 4.09 4.04 Hemoglobin 13.3 12.9 Hematocrit 38.0 37.4 Mean Corpuscular Volume 92.9 92.6 Mean Corpuscular Hemoglobin 32.4 32.1 Mean Corpuscular Hemoglobin Concent 34.9 34.6 Red Cell Distribution Width 12.6 12.5 Platelet Count 183 180 Mean Platelet Volume 7.6 7.4 Neutrophils (%) (Auto) 79.1 64.3 Lymphocytes (%) (Auto) 12.6 20.7 Monocytes (%) (Auto) 7.6 11.4 Eosinophils (%) (Auto) 0.3 2.6 Basophils (%) (Auto) 0.4 1.0 Neutrophils # (Auto) 10.0 7.3 Lymphocytes # (Auto) 1.6 2.3 Monocytes # (Auto) 1.0 1.3 Eosinophils # (Auto) 0.0 0.3 Basophils # (Auto) 0.0 0.1 CBC Comment DIFF FINAL DIFF FINAL Differential Comment Blood Urea Nitrogen 14 12 Creatinine 0.74 0.60 Random Glucose 213 208 Total Protein 6.4 Albumin 3.3 Calcium Level 8.5 8.4 Alkaline Phosphatase 54 Aspartate Amino Transf (AST/SGOT) 19 Alanine Aminotransferase (ALT/SGPT) 31 Total Bilirubin 0.5 Sodium Level 136 136 Potassium Level 4.0 3.9 Chloride Level 104 103 Carbon Dioxide Level 22.5 23.0 Anion Gap 10 10 Estimat Glomerular Filtration Rate 106 135 Radiology Last Impressions Myocardial Perfusion Scan Nuc Med 05/06/17 0000 Signed Impressions: Service Date/Time: Saturday, May 06, 2017 13:14 - CONCLUSION: Negative for stress-induced ischemia. Large septal wall infarct. RISK CATEGORY: Intermediate (1-3%% Annual Mortality Rate) Ted De Paz MD FACR Thoracic Spine CT 05/05/171429 Signed Impressions: Service Date/Time: Friday, May 05, 2017 14:43 - CONCLUSION: There are degenerative changes of the thoracic spine but no acute thoracic spine abnormality is identified. Wayne Mcdaniels MD Pelvis X-Ray 05/05/171429 Signed Impressions: Service Date/Time: Friday, May 05, 2017 14:30 - CONCLUSION: Minimally displaced fractures of the right superior and inferior pubic rami. Wayne Mcdaniels MD Lumbar Spine CT 05/05/171429 Signed Impressions: Service Date/Time: Friday, May 05, 2017 14:37 - CONCLUSION: 1. There is an oblique vertically oriented fracture of the right sacral ala with extension into the anterior aspect of the sacroiliac joint. Fracture fragment is minimally displaced and there is adjacent edema and/or hemorrhage in the adjacent extraperitoneal space. 2. No acute lumbar spine abnormality is identified. Wayne Mcdaniels MD Head CT 05/05/171429 Signed Impressions: Service Date/Time: Friday, May 05, 2017 14:37 - CONCLUSION: No acute intracranial injury Wayne Chowdhury MD Chest X-Ray 05/05/171429 Signed Impressions: Service Date/Time: Friday, May 05, 2017 14:30 - CONCLUSION: Satisfactory trauma chest appearance. Wayne Chowdhury MD Chest CT 05/05/171429 Signed Impressions: Service Date/Time: Friday, May 05, 2017 14:43 - CONCLUSION: No acute traumatic injury in the chest Wayne Chowdhury MD Cervical Spine CT 05/05/171429 Signed Impressions: Service Date/Time: Friday, May 05, 2017 14:42 - CONCLUSION: 1. No acute fracture or subluxation. 2. Multilevel degenerative spondylosis most prominently at C5-7. Tao Blanchard MD Abdomen/Pelvis CT 05/05/171429 Signed Impressions: Service Date/Time: Friday, May 05, 2017 14:43 - CONCLUSION: Right pelvic fractures. No evidence of acute intra-abdominal or pelvic soft tissue injury Wayne Chowdhury MD Wrist X-Ray 05/05/17 0000 Signed Impressions: Service Date/Time: Friday, May 05, 2017 14:30 - CONCLUSION: Moderately displaced Colles' configuration distal right radial fracture. Wayne Chowdhury MD Upper Extremity CT 05/05/17 0000 Signed Impressions: Service Date/Time: Friday, May 05, 2017 18:28 - CONCLUSION: 1. Acute comminuted distal radial fracture as detailed above. Cipriano Gutiérrez Jr., MD Narrative Exam GENERAL: 66 year old well nourished male lying in bed. SKIN: Warm and dry. HEAD: Normocephalic. EYES: PERRL ENT: No nasal bleeding or discharge. Mucous membranes pink and moist. NECK: Trachea midline. No JVD. CARDIOVASCULAR: Regular rate and rhythm. RESPIRATORY: No accessory muscle use. Clear and diminished to auscultation. Breath sounds equal bilaterally. GASTROINTESTINAL: Abdomen soft, non-tender, nondistended. + BS MUSCULOSKELETAL: Extremities without cyanosis, or edema. RIGHT arm wrapped and elevated using IV pole. MAEW, + perfused NEUROLOGICAL: Awake and alert. Normal speech. A/P Assessment and Plan [place]: Fall from approximately 20 feet from an extension ladder landing on his right side on concrete pavers. No LOC. On Plavix at home. INJURIES: RIGHT superior and inferior pubic rami fxs (non-op) Open RIGHT radial Colles' fx RIGHT fourth finger dislocation Concussion PMHx: DM, HTN, [place], CAD 05/06: RIGHT fourth finger DIP joint reduced Diet: NPO, ADA/heart healthy diet after OR today Pulm: IS Pain: [place], Morphine IV Activity: OOB. PT and OT ordered. (TTWB RLE, NWB RUE) GI: IV Protonix Bowel: Colace. PRN MOM. LBM 0 DVT: SCDs RIGHT superior and inferior pubic rami fxs Orthopedics consulted Non-operative management TTWB RLE OOB-PT ordered Open RIGHT radial Colles' fx, RIGHT fourth finger dislocation Hand surgery consulted 05/06: RIGHT fourth finger DIP joint reduced ORIF RIGHT radius today Cardiology consulted for cardiac clearance for surgical intervention NWB RUE Elevate on IV pole ABX per hand sx OT ordered Lovenox post OR Concussion Supportive care Avoid second head injury Post-concussive education DM Hold home Metformin for now Low dose SSI AC, HS Plan of care discussed with patient and RN at bedside. Collaborating Trauma MD agrees with plan of care. CM consulted to assist with discharge planning. Patient will need rehab placement. Josy Rosas May 07, 2017 10:58
[2017-05-07 12:00] VITALS: BP 142/81; PULSE 72; RESP 20; TEMP 99.5; O2SAT 95
[2017-05-07] MEDS ORDERED: ONDANSETRON HCL 4 MG/2 ML VIAL IV PUSH ONE (12:00)
[2017-05-07] MEDS ORDERED: DEXAMETHASONE SOD PHOS 4 MG/ML VIAL IV ONE (12:00)
[2017-05-07] MEDS ORDERED: LACTATED RINGER'S 1000 ML INJ 2,000 ML IV ONE (12:00)
[2017-05-07] MEDS ORDERED: PROPOFOL 200 MG/20 ML AMP IV ONE (12:00)
[2017-05-07] MEDS ORDERED: MIDAZOLAM HCL 2 MG/2 ML VIAL IV ONE (12:00)
[2017-05-07] MEDS ORDERED: LIDOCAINE HCL 1% PF 5 ML AMPULE OTHER ONE (12:00)
[2017-05-07] MEDS ORDERED: ACETAMINOPHEN 1000 MG/100 ML 100 ML IV ONE (12:55)
[2017-05-07] MEDS ORDERED: FAMOTIDINE 20 MG/2 ML VIAL ONE (13:30)
[2017-05-07] MEDS ORDERED: METOCLOPRAMIDE HCL 10 MG/2 ML VIAL ONE (13:30)
[2017-05-07] MEDS ORDERED: LIDOCAINE HCL 2% 50 ML VIAL ONE (13:45)
[2017-05-07] MEDS ORDERED: ceFAZolin 2 GM PREMIX 50 ML ONE (13:45)
[2017-05-07] MEDS ORDERED: BUPIVACAINE HCL PF 0.5% 30 ML VIAL ONE (13:46)
[2017-05-07] MEDS ORDERED: BACITRACIN TOP OINT 15 GM TUBE ONE (13:46)
--- NOTE | 2017-05-07 14:23 | PD.ORT.PN ---
Subjective Subjective Remarks Attempted to see patient today, however, patient is in OR at this time. Objective Vitals Vital Signs Date Time Temp Pulse Resp B/P (MAP) Pulse Ox O2 Delivery O2 Flow Rate FiO2 05/07/17 12:00 99.5 72 20 142/81 (101) 95 05/07/17 08:00 98.5 80 18 133/70 (91) 95 05/07/17 07:26 Room Air 05/07/17 04:35 97.5 73 20 148/80 (102) 97 05/07/17 00:35 96.7 87 19 136/75 (95) 95 05/06/17 19:16 97.9 84 18 129/75 (93) 95 05/06/17 16:15 97.3 81 18 152/86 (108) 95 I/O 05/06/17 05/06/17 05/06/17 05/07/17 05/07/17 05/07/17 07:00 15:00 23:00 07:00 15:00 23:00 Intake Total 0 ml 0 ml 480 ml 240 ml Output Total 700 ml 500 ml 1050 ml Balance -700 ml 0 ml -20 ml -810 ml Intake Oral 0 ml 0 ml 480 ml 240 ml Output Urine Total 700 ml 500 ml 1050 ml # Voids 3 # Bowel Movements 0 0 0 0 Result Diagram: 05/07/1741105/07/17411 Assessment & Plan Assessment and Plan 66-year-old gentleman with extensive cardiac history with suspected open right distal radius fracture, right acetabular fracture, and right fourth DIP joint dislocation 1. In regards to the patient's right acetabular fracture. Patient should remain nonweightbearing and should mobilize with physical therapy. Okay to use platform walker to assist with this. Patient should be on anticoagulation given he will be nonweightbearing and has a right acetabular fracture. Will place xarelto Rx on chart for discharge. 2. Patient should follow up in my clinic next week. 3. Hand and wrist fractures are being managed by hand surgery per the patient' s demand. Mis Mcdonough MD May 07, 2017 14:23
[2017-05-07] MEDS ORDERED: XARE10TA PO (14:24)
--- NOTE | 2017-05-07 14:55 | OTSOAPIP ---
TIME SESSION COMPLETED: PM TREATMENT TIME: 0 MINS. CHART REVIEWED. ATTEMPTED TO SEE FOR OT EVALUATION, HOWEVER PT HAVING SURGERY ON RIGTH WRIST. WILL FOLLOW NEXT DAY. Therapist: DULCE SAGASTUME OT/L Signature on file
[2017-05-07] MEDS: PANTOPRAZOLE SODIUM 40 MG VIAL IVP SCH (16:30)
--- NOTE | 2017-05-07 17:38 | PD.OP ---
Operative Report Preoperative Diagnosis: (1) Dorsal Lorenzo's fracture of right radius (2) Subluxation of radiocarpal joint of right wrist, initial encounter Postoperative Diagnosis: (1) Dorsal Lorenzo's fracture of right radius (2) Subluxation of radiocarpal joint of right wrist, initial encounter Procedure: open reduction and internal fixation with fragment specific implants distal radius right wrist Surgeon: Zack Gandhi Nib Assembler(s): rc Resident Surgeon: rc Operation and Findings: displaced dorsal shear Lorenzo fracture distal radius with dorsal subluxation radiocarpal joint right wrist Zack Gandhi MD May 07, 2017 17:38
[2017-05-07] MEDS ORDERED: DO NOT ADM ANY ANTICOAGULANT DRUGS PRN (18:00)
--- NOTE | 2017-05-07 18:22 | RADRPT ---
EXAM DATE/TIME: 05/07/2017 16:21 [place] COMPARISON: No previous studies available for comparison. INDICATIONS : Right wrist open reduction internal fixation. MEDICAL HISTORY : None. SURGICAL HISTORY : None. ENCOUNTER: Initial ACUITY: 1 day PAIN SCORE: Non-responsive. LOCATION: Right wrist FINDINGS: 8 magnified C. arm spot views are centered over the wrist and labeled right. An orthopedic plate with anchoring screws and wires seen involving the distal radial metaphysis. Good alignment noted. CONCLUSION: Limited images as detailed above. Cipriano Gutiérrez Jr., MD on May 07, 2017 at 18:19 Board Certified Radiologist. This report was verified electronically.
[2017-05-07 18:52] VITALS: BP 182/92; PULSE 85; RESP 18; TEMP 97.2; O2SAT 94
[2017-05-07 19:45] VITALS: BP 165/92; PULSE 94; RESP 14; TEMP 97.9; O2SAT 96
[2017-05-07] MEDS: ATORVASTATIN 40 MG TAB PO SCH (21:15)
[2017-05-08] VITALS (9 sets, daily range): BP systolic 127–142; BP diastolic 69–88; PULSE 66–87; RESP 17–20; TEMP 97–99.6; O2SAT 93–97
[2017-05-08] MEDS: ACETAMINOPHEN/HYDROcodone 325 MG/5 MG TAB PO PRN ×5 (00:13→21:10)
[2017-05-08] MEDS: SODIUM CHLOR 0.9% 1000 ML INJ 1,000 ML IV SCH (04:22)
[2017-05-08 04:53] LABS: AUTOMATED NEUTROPHIL # 9.3 TH/MM3 (1.8-7.7); BASOPHIL # 0.1 TH/MM3 (0-0.2); BASOPHIL % 0.5 % (0.0-2.0); EOSINOPHIL # 0.1 TH/MM3 (0-0.4); EOSINOPHIL % 0.4 % (0.0-4.0); HEMATOCRIT 39.2 % (39.0-51.0); HEMO FLAGS DIFF FINAL; LYMPH % 13.6 % (9.0-44.0); LYMPHOCYTE # 1.7 TH/MM3 (1.0-4.8); MEAN CELL VOLUME 94.9 FL (80.0-100.0); MEAN CORPUSCULAR HEMOGLOBIN 32.1 PG (27.0-34.0); MEAN CORPUSCULAR HGB CONC 33.8 % (32.0-36.0); NEUT % 73.5 % (16.0-70.0); PLATELET COUNT 165 TH/MM3 (150-450); RED BLOOD COUNT 4.13 MIL/MM3 (4.50-5.90); RED CELL DISTRIBUTION WIDTH 12.5 % (11.6-17.2); WHITE BLOOD COUNT 12.7 TH/MM3 (4.0-11.0)
[2017-05-08 05:22] LABS: BICARBONATE 23.8 MEQ/L (21.0-32.0)
[2017-05-08] MEDS: INSULIN NovoLIN REGULAR SUPPLEMENTAL SCALE SQ SCH ×2 (08:00→11:42)
[2017-05-08] MEDS: FAMOTIDINE 20 MG TAB PO SCH ×2 (09:24→21:10)
[2017-05-08] MEDS: DOCUSATE SODIUM 50 MG/SENNA 8.6 MG TAB PO SCH ×2 (09:25→21:00)
[2017-05-08] MEDS: POLYETHYLENE GLYCOL 17 GM PKG PO SCH (09:25)
[2017-05-08] MEDS: INSULIN HUMAN REGULAR 1,000 UNITS/10 ML VIAL SQ PRN ×2 (09:25→11:42)
[2017-05-08] MEDS: METOPROLOL TARTRATE 50 MG TAB PO SCH ×2 (09:26→21:10)
[2017-05-08] MEDS ORDERED: MAGNESIUM CITRATE SOLN 300 ML BTL PO ONE (12:30)
--- NOTE | 2017-05-08 12:56 | HHI.PR ---
Subjective Subjective Notes S/P ORIF with fragment specific implants distal radius right wrist OOB in chair Pain controlled Objective Vitals/I&O Vital Signs Date Time Temp Pulse Resp B/P (MAP) Pulse Ox O2 Delivery O2 Flow Rate FiO2 05/08/17 12:00 97.0 66 20 138/69 (92) 96 05/08/17 10:03 21 05/08/17 09:35 Room Air 05/07/17 18:00 2 Labs Laboratory Tests Test 05/08/17 04:34 White Blood Count 12.7 Red Blood Count 4.13 Hemoglobin 13.3 Hematocrit 39.2 Mean Corpuscular Volume 94.9 Mean Corpuscular Hemoglobin 32.1 Mean Corpuscular Hemoglobin Concent 33.8 Red Cell Distribution Width 12.5 Platelet Count 165 Mean Platelet Volume 8.0 Neutrophils (%) (Auto) 73.5 Lymphocytes (%) (Auto) 13.6 Monocytes (%) (Auto) 12.0 Eosinophils (%) (Auto) 0.4 Basophils (%) (Auto) 0.5 Neutrophils # (Auto) 9.3 Lymphocytes # (Auto) 1.7 Monocytes # (Auto) 1.5 Eosinophils # (Auto) 0.1 Basophils # (Auto) 0.1 CBC Comment DIFF FINAL Differential Comment Blood Urea Nitrogen 11 Creatinine 0.65 Random Glucose 238 Calcium Level 8.3 Sodium Level 135 Potassium Level 4.0 Chloride Level 103 Carbon Dioxide Level 23.8 Anion Gap 8 Estimat Glomerular Filtration Rate 123 Radiology Last Impressions Myocardial Perfusion Scan Nuc Med 05/06/17 0000 Signed Impressions: Service Date/Time: Saturday, May 06, 2017 13:14 - CONCLUSION: Negative for stress-induced ischemia. Large septal wall infarct. RISK CATEGORY: Intermediate (1-3%% Annual Mortality Rate) Ted De Paz MD FACR Thoracic Spine CT 05/05/17 1430 Signed Impressions: Service Date/Time: Friday, May 05, 2017 14:43 - CONCLUSION: There are degenerative changes of the thoracic spine but no acute thoracic spine abnormality is identified. Wayne Mcdaniels MD Pelvis X-Ray 05/05/17 1430 Signed Impressions: Service Date/Time: Friday, May 05, 2017 14:30 - CONCLUSION: Minimally displaced fractures of the right superior and inferior pubic rami. Wayne Mcdaniels MD Lumbar Spine CT 05/05/171429 Signed Impressions: Service Date/Time: Friday, May 05, 2017 14:37 - CONCLUSION: 1. There is an oblique vertically oriented fracture of the right sacral ala with extension into the anterior aspect of the sacroiliac joint. Fracture fragment is minimally displaced and there is adjacent edema and/or hemorrhage in the adjacent extraperitoneal space. 2. No acute lumbar spine abnormality is identified. Wayne Mcdaniels MD Head CT 05/05/171429 Signed Impressions: Service Date/Time: Friday, May 05, 2017 14:37 - CONCLUSION: No acute intracranial injury Wayne Chowdhury MD Chest X-Ray 05/05/171429 Signed Impressions: Service Date/Time: Friday, May 05, 2017 14:30 - CONCLUSION: Satisfactory trauma chest appearance. Wayne Chowdhury MD Chest CT 05/05/171429 Signed Impressions: Service Date/Time: Friday, May 05, 2017 14:43 - CONCLUSION: No acute traumatic injury in the chest Wayne Chowdhury MD Cervical Spine CT 05/05/171429 Signed Impressions: Service Date/Time: Friday, May 05, 2017 14:42 - CONCLUSION: 1. No acute fracture or subluxation. 2. Multilevel degenerative spondylosis most prominently at C5-7. Tao Blanchard MD Abdomen/Pelvis CT 05/05/171429 Signed Impressions: Service Date/Time: Friday, May 05, 2017 14:43 - CONCLUSION: Right pelvic fractures. No evidence of acute intra-abdominal or pelvic soft tissue injury Wayne Chowdhury MD Wrist X-Ray 05/05/17 0000 Signed Impressions: Service Date/Time: Friday, May 05, 2017 14:30 - CONCLUSION: Moderately displaced Colles' configuration distal right radial fracture. Wayne Chowdhury MD Upper Extremity CT 05/05/17 0000 Signed Impressions: Service Date/Time: Friday, May 05, 2017 18:28 - CONCLUSION: 1. Acute comminuted distal radial fracture as detailed above. Cipriano Gutiérrez Jr., MD Narrative Exam GENERAL: 66 year old well nourished male OOB in chair with RUE collies sling elevated on IV pole. SKIN: Warm and dry. HEAD: Normocephalic. EYES: PERRL ENT: No nasal bleeding or discharge. Mucous membranes pink and moist. NECK: Trachea midline. No JVD. CARDIOVASCULAR: Regular rate and rhythm. RESPIRATORY: No accessory muscle use. Clear and diminished to auscultation. Breath sounds equal bilaterally. GASTROINTESTINAL: Abdomen soft, non-tender, nondistended. + BS MUSCULOSKELETAL: Extremities without cyanosis, or edema. RUE collies sling elevated on IV pole. MAEW, + perfused NEUROLOGICAL: Awake and alert. Normal speech. A/P Assessment and Plan [place]: Fall from approximately 20 feet from an extension ladder landing on his right side on concrete pavers. No LOC. On Plavix at home. INJURIES: RIGHT superior and inferior pubic rami fxs (non-op) Open RIGHT radial Colles' fx RIGHT fourth finger dislocation Concussion PMHx: DM, HTN, [place], CAD 05/06: RIGHT fourth finger DIP joint reduced Diet: Heart healthy/ADA Pulm: IS Pain: [place], Morphine IV Activity: OOB. PT and OT ordered. (TTWB RLE) GI: Pepcid Bowel: Merary-colace. Miralax. PRN MOM. No BM yet. Mag citrate x1 today DVT: SCDs, Lovenox 40 QD, Plavix RIGHT superior and inferior pubic rami fxs Orthopedics consulted Non-operative management TTWB RLE OOB-PT ordered Lovenox Open RIGHT radial Colles' fx, RIGHT fourth finger dislocation Hand surgery consulted 05/06: RIGHT fourth finger DIP joint reduced ABX per hand sx Lovenox Concussion Supportive care Avoid second head injury Post-concussive education DM Resume home Metformin dose Plan of care discussed with patient and RN at bedside. Collaborating Trauma MD agrees with plan of care. CM consulted to assist with discharge planning. Raf evaluating for possible placement. Josy Rosas May 08, 2017 12:56
[2017-05-08] MEDS: ENOXAPARIN SODIUM 40 MG/0.4 ML SYRINGE SQ SCH (13:03)
[2017-05-08] MEDS: CLOPIDOGREL 75 MG TAB PO SCH (13:04)
--- NOTE | 2017-05-08 15:25 | HHI.PR ---
Subjective Remarks complains of pain over the right wrist region denies any tingling or numbness complaint with limb elevation Objective Vital Signs Date Time Temp Pulse Resp B/P (MAP) Pulse Ox O2 Delivery O2 Flow Rate FiO2 05/08/17 12:00 97.0 66 20 138/69 (92) 96 05/08/17 10:03 96 21 05/08/17 09:35 Room Air 05/08/17 08:00 97.6 80 20 136/79 (98) 93 05/08/17 06:14 21 05/08/17 04:00 97.6 85 20 137/88 (104) 96 05/08/17 00:00 99.6 87 20 142/76 (98) 97 05/07/17 21:26 Room Air 05/07/17 19:45 97.9 94 14 165/92 (116) 96 05/07/17 18:52 97.2 85 18 182/92 (122) 94 05/07/17 18:45 Room Air 05/07/17 18:30 93 16 156/88 (110) 98 Room Air 05/07/17 18:15 91 16 168/92 (117) 99 Room Air 05/07/17 18:00 86 16 172/80 (110) 96 Nasal Cannula 2 05/07/17 17:45 90 16 160/79 (106) 95 Nasal Cannula 2 05/07/17 17:30 99.1 94 16 162/86 (111) 95 Nasal Cannula 2 05/07/17 16:00 I/O 05/07/17 05/07/17 05/07/17 05/08/17 05/08/17 05/08/17 07:00 15:00 23:00 07:00 15:00 23:00 Intake Total 240 ml 1540 ml 2030 ml Output Total 1050 ml 600 ml 25 ml 3100 ml Balance -810 ml -600 ml 1515 ml -1070 ml Intake Oral 240 ml 240 ml 1040 ml IV Total 990 ml Other 1300 ml Output Urine Total 1050 ml 600 ml 0 ml 3100 ml Estimated Blood Loss 25 ml # Bowel Movements 0 0 right upper extremity: splint in place intact sensation and distal circulation range of motion of fingers are limited and painful Result Diagram: 05/08/17 0434 05/08/17 0434 Assessment and Plan Assessment and Plan 66 year old male s/p ORIF distal radius right wrist POD 1 Plan Continue with limb elevation finger range of motion exercises watch for distal circulation hand surgery will follow in rehab non weight bearing right forearm and wrist Zack Gandhi MD May 08, 2017 15:25
[2017-05-08] MEDS: metFORMIN HCL 500 MG TAB PO SCH (17:07)
[2017-05-08] MEDS: MAGNESIUM HYDROXIDE SUSP 30 ML CUP PO SCH ×3 (18:26→21:00)
[2017-05-08] MEDS ORDERED: MAGN30S PO (20:23)
[2017-05-08] MEDS ORDERED: ENOX40P SQ (20:23)
[2017-05-08] MEDS ORDERED: FAMO20TA2 PO (20:23)
[2017-05-08] MEDS ORDERED: PERI PO (20:23)
[2017-05-08] MEDS ORDERED: Glucagon Inj OTHER (20:23)
[2017-05-08] MEDS ORDERED: Lactulose Liq PO (20:23)
[2017-05-08] MEDS ORDERED: Dextrose 50% In Wat (Vial) Inj IV PUSH (20:23)
[2017-05-08] MEDS ORDERED: NOVORP2 SQ (20:23)
[2017-05-08] MEDS ORDERED: POLY17S PO (20:23)
[2017-05-08] MEDS ORDERED: HYDR-3516 PO (20:23)
--- NOTE | 2017-05-08 20:50 | PD.ORT.PN ---
Subjective Subjective Remarks no issues Objective Vitals Vital Signs Date Time Temp Pulse Resp B/P (MAP) Pulse Ox O2 Delivery O2 Flow Rate FiO2 05/08/17 18:58 Room Air 05/08/17 16:00 97.2 73 20 140/76 (97) 97 05/08/17 12:00 97.0 66 20 138/69 (92) 96 05/08/17 10:03 96 21 05/08/17 09:35 Room Air 05/08/17 08:00 97.6 80 20 136/79 (98) 93 05/08/17 06:14 21 05/08/17 04:00 97.6 85 20 137/88 (104) 96 05/08/17 00:00 99.6 87 20 142/76 (98) 97 05/07/17 21:26 Room Air I/O 05/07/17 05/07/17 05/07/17 05/08/17 05/08/17 05/08/17 07:00 15:00 23:00 07:00 15:00 23:00 Intake Total 240 ml 1540 ml 2030 ml 600 ml Output Total 1050 ml 600 ml 25 ml 3100 ml Balance -810 ml -600 ml 1515 ml -1070 ml 600 ml Intake Oral 240 ml 240 ml 1040 ml 600 ml IV Total 990 ml Other 1300 ml Output Urine Total 1050 ml 600 ml 0 ml 3100 ml Estimated Blood Loss 25 ml # Voids 3 # Bowel Movements 0 0 0 Result Diagram: 05/08/17 0434 05/08/17 043 Objective Remarks RLE: nvi. TTP anterior pelvic rim and posterior SI region. painful attempted hip ROM. + log roll Assessment & Plan Assessment and Plan 1-open right distal radius fx 2-right 4th DIP dislocation 3-right acetabular fx 66-year-old gentleman with extensive cardiac history. NWB RLE. Okay to use platform walker to assist with this. Anticoagulation recommended. xarelto Rx on chart for discharge. F/U with orthopedic in office next week Hand and wrist fractures are being managed by hand surgery per the patient's demand. Jack Galvan Jr., MD May 08, 2017 20:50
[2017-05-08] MEDS: ATORVASTATIN 40 MG TAB PO SCH (21:09)
[2017-05-09] VITALS: BP 123/73; PULSE 75; RESP 16; TEMP 97.5; O2SAT 96
[2017-05-09] MEDS: ACETAMINOPHEN/HYDROcodone 325 MG/5 MG TAB PO PRN ×3 (02:36→13:22)
[2017-05-09 07:37] VITALS: BP 133/72; PULSE 81; RESP 18; TEMP 96.1; O2SAT 96
[2017-05-09] MEDS: METOPROLOL TARTRATE 50 MG TAB PO SCH (07:50)
[2017-05-09] MEDS: CLOPIDOGREL 75 MG TAB PO SCH (07:50)
[2017-05-09] MEDS: FAMOTIDINE 20 MG TAB PO SCH (07:50)
[2017-05-09] MEDS: MAGNESIUM HYDROXIDE SUSP 30 ML CUP PO SCH (07:51)
[2017-05-09] MEDS: DOCUSATE SODIUM 50 MG/SENNA 8.6 MG TAB PO SCH (07:52)
[2017-05-09] MEDS: POLYETHYLENE GLYCOL 17 GM PKG PO SCH (07:52)
[2017-05-09] MEDS: metFORMIN HCL 500 MG TAB PO SCH (07:59)
[2017-05-09] MEDS ORDERED: LACTULOSE SYRUP 20 GM/30 ML CUP PO SCH (09:00)
[2017-05-09 09:59] VITALS: O2SAT 96
--- NOTE | 2017-05-09 10:36 | PD.ORT.PN ---
Subjective Subjective Remarks Patient comfortable. Pain controlled. Objective Vitals Vital Signs Date Time Temp Pulse Resp B/P (MAP) Pulse Ox O2 Delivery O2 Flow Rate FiO2 05/09/17 09:59 96 21 05/09/17 08:50 16 05/09/17 07:37 96.1 81 18 133/72 (92) 96 05/09/17 00:00 97.5 75 16 123/73 (90) 96 05/08/17 22:25 97 05/08/17 22:04 97.8 77 17 127/69 (88) 97 05/08/17 22:01 97.8 77 17 127/69 (88) 97 05/08/17 18:58 Room Air 05/08/17 16:00 97.2 73 20 140/76 (97) 97 05/08/17 12:00 97.0 66 20 138/69 (92) 96 I/O 05/08/17 05/08/17 05/08/17 05/09/17 05/09/17 05/09/17 07:00 15:00 23:00 07:00 15:00 23:00 Intake Total 2030 ml 600 ml 480 ml 360 ml Output Total 3100 ml 1400 ml Balance -1070 ml 600 ml 480 ml -1040 ml Intake Oral 1040 ml 600 ml 480 ml 360 ml IV Total 990 ml Output Urine Total 3100 ml 1400 ml # Voids 3 3 # Bowel Movements 0 2 1 Result Diagram: 05/08/17 0434 05/08/17 0434 Objective Remarks RLE: nvi. TTP anterior pelvic rim and posterior SI region. painful attempted hip ROM. + log roll Assessment & Plan Assessment and Plan 1-open right distal radius fx 2-right 4th DIP dislocation 3-right acetabular fx 66-year-old gentleman with extensive cardiac history. NWB RLE. Okay to use platform walker to assist with this. Anticoagulation recommended. xarelto Rx on chart for discharge. Orthopedically stable for discharge F/U with orthopedic in office next week Hand and wrist fractures are being managed by hand surgery per the patient's demand. Warner Hinkle May 09, 2017 10:36
--- NOTE | 2017-05-09 11:55 | HHI.DS ---
Discharge Summary Admission Date May 05, 2017 at 16:22 Discharge Date: May 09, 2017 Admitting Diagnosis open right wrist fracture, right pelvic fracture, right fourth finge (1) Concussion ICD Codes: S06.0X9A - Concussion with loss of consciousness of unspecified duration, initial encounter Diagnosis: Principal (2) Pelvic fracture ICD Codes: S32.9XXA - Fracture of unspecified parts of lumbosacral spine and pelvis, initial encounter for closed fracture Diagnosis: Principal Status: Acute (3) Fall from ladder ICD Codes: W11.XXXA - Fall on and from ladder, initial encounter Diagnosis: Principal (4) Open fracture of right distal radius and ulna ICD Codes: S52.501B - Unspecified fracture of the lower end of right radius, initial encounter for open fracture type I orII; S52.601B - Unspecified fracture of lower end of right ulna, initial encounter for open fracture type I or II Diagnosis: Principal Status: Acute (5) Dislocation of right ring finger ICD Codes: S63.254A - Unspecified dislocation of right ring finger, initial encounter Diagnosis: Principal (6) Trauma ICD Codes: T14.90XA - Injury, unspecified, initial encounter Status: Acute (7) Subluxation of radiocarpal joint of right wrist, initial encounter ICD Codes: S63.021A - Subluxation of radiocarpal joint of right wrist, initial encounter Diagnosis: Principal (8) Dorsal Lorenzo's fracture of right radius ICD Codes: S52.561A - Lorenzo's fracture of right radius, initial encounter for closed fracture Diagnosis: Principal Brief History Fall. CBC/BMP: 05/08/17 0434 05/08/17 0434 Significant Findings Laboratory Tests Test 05/06/17 17:32 05/07/17 04:12 05/08/17 04:34 White Blood Count 12.7 TH/MM3 (4.0-11.0) 11.3 TH/MM3 (4.0-11.0) 12.7 TH/MM3 (4.0-11.0) Red Blood Count 4.09 MIL/MM3 (4.50-5.90) 4.04 MIL/MM3 (4.50-5.90) 4.13 MIL/MM3 (4.50-5.90) Hematocrit 38.0 % (39.0-51.0) 37.4 % (39.0-51.0) Neutrophils (%) (Auto) 79.1 % (16.0-70.0) 73.5 % (16.0-70.0) Neutrophils # (Auto) 10.0 TH/MM3 (1.8-7.7) 9.3 TH/MM3 (1.8-7.7) Monocytes # (Auto) 1.0 TH/MM3 (0-0.9) 1.3 TH/MM3 (0-0.9) 1.5 TH/MM3 (0-0.9) Random Glucose 213 MG/DL (74-106) 208 MG/DL (74-106) 238 MG/DL (74-106) Albumin 3.3 GM/DL (3.4-5.0) Hemoglobin 12.9 GM/DL (13.0-17.0) Monocytes (%) (Auto) 11.4 % (0.0-8.0) 12.0 % (0.0-8.0) Calcium Level 8.4 MG/DL (8.5-10.1) 8.3 MG/DL (8.5-10.1) Sodium Level 135 MEQ/L (136-145) Imaging Last Impressions Wrist X-Ray 05/07/17 0000 Signed Impressions: Service Date/Time: April 16:21 - CONCLUSION: Limited images as detailed above. Cipriano Gutiérrez Jr., MD Myocardial Perfusion Scan Nuc Med 05/06/17 0000 Signed Impressions: Service Date/Time: Saturday, May 06, 2017 13:14 - CONCLUSION: Negative for stress-induced ischemia. Large septal wall infarct. RISK CATEGORY: Intermediate (1-3%% Annual Mortality Rate) Ted De Paz MD FACR Thoracic Spine CT 05/05/17 1430 Signed Impressions: Service Date/Time: Friday, May 05, 2017 14:43 - CONCLUSION: There are degenerative changes of the thoracic spine but no acute thoracic spine abnormality is identified. Wayne Mcdaniels MD Pelvis X-Ray 05/05/17 1430 Signed Impressions: Service Date/Time: Friday, May 05, 2017 14:30 - CONCLUSION: Minimally displaced fractures of the right superior and inferior pubic rami. Wayne Mcdaniels MD Lumbar Spine CT 05/05/17 1430 Signed Impressions: Service Date/Time: Friday, May 05, 2017 14:37 - CONCLUSION: 1. There is an oblique vertically oriented fracture of the right sacral ala with extension into the anterior aspect of the sacroiliac joint. Fracture fragment is minimally displaced and there is adjacent edema and/or hemorrhage in the adjacent extraperitoneal space. 2. No acute lumbar spine abnormality is identified. Wayne Mcdaniels MD Head CT 05/05/171429 Signed Impressions: Service Date/Time: Friday, May 05, 2017 14:37 - CONCLUSION: No acute intracranial injury Wayne Chowdhury MD Chest X-Ray 05/05/171429 Signed Impressions: Service Date/Time: Friday, May 05, 2017 14:30 - CONCLUSION: Satisfactory trauma chest appearance. Wayne Chowdhury MD Chest CT 05/05/171429 Signed Impressions: Service Date/Time: Friday, May 05, 2017 14:43 - CONCLUSION: No acute traumatic injury in the chest Wayne Chowdhury MD Cervical Spine CT 05/05/171429 Signed Impressions: Service Date/Time: Friday, May 05, 2017 14:42 - CONCLUSION: 1. No acute fracture or subluxation. 2. Multilevel degenerative spondylosis most prominently at C5-7. Tao Blanchard MD Abdomen/Pelvis CT 05/05/171429 Signed Impressions: Service Date/Time: Friday, May 05, 2017 14:43 - CONCLUSION: Right pelvic fractures. No evidence of acute intra-abdominal or pelvic soft tissue injury Wayne Chowdhury MD Upper Extremity CT 05/05/17 0000 Signed Impressions: Service Date/Time: Friday, May 05, 2017 18:28 - CONCLUSION: 1. Acute comminuted distal radial fracture as detailed above. Cipriano Gutiérrez Jr., MD PE at Discharge GENERAL: This is a 66 year old , well nourished male OOB in chair with RUE collies sling elevated on IV pole. SKIN: Warm and dry. HEAD: Normocephalic. EYES: PERRLA ENT: No nasal bleeding or discharge. Mucous membranes pink and moist. NECK: Trachea midline. No JVD. CARDIOVASCULAR: Regular rate and rhythm. RESPIRATORY: No accessory muscle use. Lungs are clear and diminished to auscultation. Breath sounds equal bilaterally. GASTROINTESTINAL: Abdomen soft, non-tender, nondistended. + BS MUSCULOSKELETAL: Extremities without cyanosis, or edema. RUE collies sling elevated on IV pole. MAEW, + peripheral pulses 4 extremities. NEUROLOGICAL: Awake and alert. Normal speech. Hospital Course RESIGHINI: This is a 66-year-old male who sustained a fall from approximately 20 feet from an extension ladder landing on his right side on concrete pavers. No LOC. On Plavix at home. INJURIES: Concussion Open RIGHT radial Colles' fx RIGHT 4th finger dislocation RIGHT superior and inferior pubic rami fxs (non-op) PMHx: DM, HTN, ID x4, CAD Procedures: 05/06: RIGHT fourth finger DIP joint reduced 05/07: ORIF with fragment specific implants distal radius right wrist Consults: Orthopedics. Hand surgery. Cardiology. [place] nurse liaison. Case management The patient is now tolerating a po diet. Eating and drinking well. Pain is being managed well with PO pain medications, and all hospital medications will continue at [facility]. Pt is having regular bowel movements, and have recommended to patient to continue with stool softeners while taking narcotic pain medications to prevent constipation. Pt has been participating in PT and OT while admitted at [facility] and has been ambulating with their assistance and independently . PT and OT will continue at [facility] All follow up appointments have been provided and discussed with the patient. It is recommended that the patient keeps all his follow up appointments for continued recovery. Patient's condition and plan of care discussed with collaborating trauma surgeon. He is agreeable to plan for discharge today. Therefore, the patient is stable to be safely discharged to [facility] from a trauma surgery standpoint. Thank you for allowing us to participate in his care. We wish Nic the best in his recovery. Concussion Supportive care Avoid second head injury Post-concussive education Serial neuro checks Open RIGHT radial Colles' fx RIGHT superior and inferior pubic rami fxs Orthopedics consulted and assisting in management and care 05/07: ORIF with fragment specific implants distal radius right wrist Non-operative management for pelvic fracture Pain management NWTania KOTHARI RLSarah OOB PT ordered Lovenox for DVT prophylaxis Follow-up outpatient Orthopedics cleared for discharge RIGHT fourth finger dislocation Hand surgery consulted and assisting in management and care 05/06: RIGHT fourth finger DIP joint reduced ABX per hand sx Lovenox for DVT prophylaxis Hand surgery will follow at [facility]. DM HTN Heart healthy/Diabetic diet Resume home Metformin dose Sliding-scale insulin Resume home meds - Lopressor 75 BID, Vasotec PRN Pt Condition on Discharge: Stable Discharge Disposition: Rehab Inpatient Discharge Instructions DIET: Follow Instructions for: Heart Healthy Diet, Diabetic Diet Activities you can perform: Toe Touch Weight Bearing, Non Weight Bearing Activities to Avoid: Driving for 24 hrs, Concussion Sports, Contact Sports, Lifting/Bending, Weight Bearing, Strenuous Activity Other Activity Instructions: MADELINE SMITH. Sharon Jarrett May 09, 2017 11:55
[2017-05-09] MEDS: ENOXAPARIN SODIUM 40 MG/0.4 ML SYRINGE SQ SCH (13:22)
[2017-05-09 14:22] VITALS: RESP 16
--- NOTE | 2017-05-11 10:14 | MP ---
cc: KIMANI BAKER MD DATE OF SURGERY: 05/07/2017 PREOPERATIVE DIAGNOSIS Displaced dorsal Lorenzo fracture distal radius with dorsal subluxation radiocarpal joint. POSTOPERATIVE DIAGNOSIS Displaced dorsal Lorenzo fracture distal radius with dorsal radial carpal subluxation, right wrist. PROCEDURE Open reduction, internal fixation with fragments distal radius right wrist. SURGEON Dr. Baker. ANESTHESIA General. ESTIMATED BLOOD LOSS 25 cc. TOURNIQUET TIME Two hours at 250 mmHg. IMPLANTS USED Five-hole radial column template and dorsal wire form with washer, [employer]. DISPOSITION To PACU stable. INDICATION The patient is a 66-year-old right-hand dominant male who presented with a history of a fall from a ladder of about 20 feet. He was found to have deformity of the right wrist and a fractured pelvis. The patient had a puncture wound on the ulnar aspect of the right wrist. He also had deformity. Range of motion of the wrist was limited and painful. X-ray showed a distal radius fracture with dorsal subluxation of the radiocarpal joint with intraarticular comminution. CT scan showed a dorsal displaced Lorenzo fracture with dorsal subluxation of the radiocarpal joint. The patient was consented for open reduction and internal fixation. He was explained the risks and benefits of the procedure. DETAILS OF PROCEDURE The patient was brought to the operating room. Under general anesthesia the right upper extremity was thoroughly prepped and draped. Initially closed reduction was carried out to better define the fracture anatomy. The incision site was marked radial to the radial artery measuring about 5-6 cm over the distal radius. Another incision site was marked over the dorsal aspect of the wrist measuring 4 cm corresponding to the fourth extensor compartment. The limb was exsanguinated using an Esmarch tourniquet. The tourniquet was inflated to 250 mmHg. Attention was initially directed to the volar radial aspect. An incision was made over the proposed incision site. Soft tissue dissection was carried out. The radial nerve was protected out of harm's way. The first dorsal compartment was incised and the extensor tendons were retracted dorsally. An incision was then made over the brachial radialis. The brachial radialis was elevated in the dorsal and volar aspect using a periosteal elevator, creating a flap and exposing the radial styloid fragment. Reduction was carried out and was checked under the C-arm. The patient had a displaced dorsal Lorenzo fracture. The fracture line on the volar aspect extended just proximal to the radial styloid onto the articular surface of the lunate fossa. The decision was made to proceed dorsally. An incision was made over the dorsal aspect. The extensor pollicis longus tendon was identified. The third extensor compartment was released. The EPL was transposed towards the radial aspect. The extensor tendons were transposed ulnarward, the fourth extensor compartment tendon exposing the fracture surface. A posterior traction neurectomy was carried out. There was evidence of comminution over the dorsal surface. The articular surface was then reduced to the proximal row using the proximal template. Reduction was then carried out. The radial styloid was initially fixed with two 0.045 K-wires. Reduction was confirmed under the C-arm. The K-wire position was acceptable. The dorsal radiocarpal subluxation was well-corrected. A dorsal wire form was then selected. This was introduced into the void in the dorsal aspect and was used as a buttress to buttress the articular surface. This was then fixed to the proximal fragment using a 3.7 screw and a washer. The reduction was checked under the C-arm. The articular surface was well-reduced and concentric. The void was then filled with cortical cancellous bone graft to act as a buttress. Attention was then directed to the radial styloid. A five-hole radial column plate was then selected. This was then passed over the previously placed guide wires. The position was checked under the C-arm. Two 3.5 mm cortical screws were then introduced into the proximal holes. The K-wires were then retracted a centimeter, cut and bent was made to hook and impacted into the distal fragment using the pin holes for impaction. Reduction was checked under the C-arm. The fracture was well-reduced and the radial inclination, radial height was well-maintained. The distal radioulnar joint stability was checked. The joint was stable in supination. The tourniquet was deflated. Total tourniquet time was two hours. Bleeding points were cauterized with bipolar cautery. The extensor pollicis longus was then transposed subcutaneously and the extensor retinaculum was approximated using 3-0 Ethibond in a horizontal mattress interrupted fashion. The plate was then covered with half of the brachial radialis tendons on the radial aspect. The skin was then approximated using 4-0 nylon in a horizontal mattress interrupted fashion. About 7 cc of local anesthesia containing a mixture of 2% lidocaine and 0.5% Marcaine was injected across the incision site. A bulky hand dressing was applied which was held in place by Sof-Rol and a sugar-tong splint was applied keeping the wrist and forearm in slight supination. The patient had good distal circulation at the end of the procedure. He was recovered and sent to the recovery room in stable condition. Kimani Baker MD SE/ORALIA /5:48 PM /9:34 AM
== END 2017-05-09 14:48 | DRG 959 ==
LOC: NEPI 14:27 → EDBD 16:22 → NEDA 16:22 → N06A 19:51
PROVIDERS: ADMIT Surgery; ATTEND Surgery
PROC: 0RSWXZZ Reposition Right Finger Phalangeal Joint, External Approach (ICD-10-PCS; 2017-05-05)
PROC: 0PUH0KZ Supplement Right Radius with Nonautologous Tissue Substitute, Open Approach (ICD-10-PCS; 2017-05-07)
PROC: 0PSH04Z Reposition Right Radius with Internal Fixation Device, Open Approach (ICD-10-PCS; principal; 2017-05-07 13:53)
DX: S52.561 Barton's fracture of right radius (principal); S32.19XA Other fracture of sacrum, initial encounter for closed fracture; S32.401A Unspecified fracture of right acetabulum, initial encounter for closed fracture; S32.511A Fracture of superior rim of right pubis, initial encounter for closed fracture; I10 Essential (primary) hypertension; S63.254A Unspecified dislocation of right ring finger, initial encounter; S06.0X0A Concussion without loss of consciousness, initial encounter; E11.9 Type 2 diabetes mellitus without complications; I25.10 Atherosclerotic heart disease of native coronary artery without angina pectoris; W11.XXXA Fall on and from ladder, initial encounter; E78.5 Hyperlipidemia, unspecified; Z79.84 Long term (current) use of oral hypoglycemic drugs; I25.2 Old myocardial infarction; Z79.02 Long term (current) use of antithrombotics/antiplatelets; Z95.5 Presence of coronary angioplasty implant and graft
CPT/HCPCS: 70450; 71010; 71260; 72125; 72128; 72131; 72170; 73100; 73110; 73200; 74177; 76000; 78452; 80048; 80053; 82435; 82565; 82947; 82948; 84132; 84295; 84520; 85025; 85610; 85730; 86850; 86900; 86901; 86920; 90715; 93005; 93017; A9502; C1713; C9113; J0131; J0690; J1100; J1580; J1650; J1815; J2250; J2270; J2405; J2765; J2785; J3010; J7030; J7120; Q9967